=== PATIENT | male | born 1970 | race Caucasian/White ===

== ENCOUNTER 2018-02-10 11:25 | Emergency (ER) | payer SELFPAY ==
[~2018-02-10] VITALS: Ht 182.9 cm; Wt 147.4 kg
--- OUTSIDE RECORDS SUMMARY | ~2018-02-10 | XMS | Clinical Summary ---
Demographics + + + | Address | [address] | | | [place] [address] | + + + | Home Phone | | + + + | Preferred Language | Unknown | + + + | Marital Status | | + + + | Amish Affiliation | Unknown | + + + | Race | Unknown | + + + | Ethnic Group | Unknown | + + + Author + + + | Author | [facility] | | | and [place] | + + + | Organization | [facility] | | | and [...] Team Providers + +------+ + | Care Fleet Mechanic Name | Role | Phone | + [...] | MELINDA CMS WC | [place] | [id number] | Indemn | +- | | | | CK CMS | | ity | 4400 | | | | WC | | | | | + +--------+ +--------+ +---------+ | BCBS | BCBS | [id number] | PPO | | | | | [...] | 1971 | +[address] | [place] [address] | | | tano | | | [address] | | + +--------+ +--------+ + + | [id number] | Worker | Self | [birth year] | Work: | [address] | | | s Comp | | 1970 | [address] | [place] [address] | | | | | | [address] Home: | | | | | | | | | | | | | | +[address]- | | | | | | | [address] | | + +--------+ +--------+ + +"
--- OUTSIDE RECORDS SUMMARY | ~2018-02-10 | XMS | Clinical Summary ---
Demographics + + + | Address | [address] | | | [place] [address] | + + + | Home Phone | | + + + | Preferred Language | Unknown | + + + | Marital Status | | + + + | Yarsanism Affiliation | Unknown | + + + | Race | Unknown | + + + | Ethnic Group | Unknown | + + + Author + + + | Author | [facility] | | | and [place] | + + + | Organization | [facility] | | | and [...] Team Providers + +------+ + | Care Pipe Processor Name | Role | Phone | + [...] | MELINDA CMS WC | SED[place] | [id number] | Indemn | +- | | | | CK CMS | | ity | [address]00 | | | | WC | | | | | + +--------+ +--------+ +---------+ | BCBS | BCBS | [id number] | PPO | | | | | [...] | 1971 | +[address] | [place] [address] | | | tano | | | [address] | | + +--------+ +--------+ + + | [id number] | Worker | Self | [birth year] | Work: | [address] | | | s Comp | | 1970 | +[address] | [place] [address] | | | | | | [address] Home: | | | | | | | | | | | | | | +[address]- | | | | | | | [address] | | + +--------+ +--------+ + +"
[~2018-02-10 11:25] MED LIST: ALEVE220 M1 PO; BACTRIM DS TAB1 EACH PO; CITALOPRAM HBR20 MG PO; CYCLOBENZAPRINE10 MG PO; CYMBALTA30 MG PO; DULOXETINE HCL20 MG PO; GLUCOSAMINE-CH1 EA21 PO; IBUPROFEN800 MG PO; LISINOPRIL-HCT1 EAC2 PO; MINIPRESS1 MG PO; MULTIVITAMINS1 EAC7; NORCO 5-325 TA1 EACH PO; OMEPRAZOLE20 MG PO; OXYCODONE HCL10 MG PO; PERCOCET 10-321 EACH PO; PERCOCET 5-3251 EACH PO; PRAZOSIN HCL1 MG PO; TESSALON PERLE100 MG PO; ZINC30 MG PO; ZITHROMAX250 MG PO
--- OUTSIDE RECORDS SUMMARY | 2018-02-10 11:30 | XMS ---
PreManage Notification: HERMILA ZARATE Security Data Security Consultant Events No recent Security Events currently on file CRITERIA MET - Group Notification CARE PROVIDERS Tony Harmon Primary Care Current PHONE: Unknown DR SANJEEV WEAVER Primary Care 12/21/2015-Current PHONE: [phone] Ritesh has no Care Guidelines for this patient. Miranda VISIT COUNT (12 MO.) Chad Astudillo TOTAL 1 NOTE: Visits indicate total known visits. ED/UCC VISIT TRACKING (12 MO.) 02/10/2018 11:[address] [facility] [place] TYPE: Emergency COMPLAINT: - L HAND LACERATION INPATIENT VISIT TRACKING (12 MO.) No inpatient visits to display in this time frame [id number]
[2018-02-10] MEDS ORDERED: ASPIR 8181 MG PO (12:18)
== END 2018-02-10 11:47 | disposition home or self-care (01) ==
LOC: ED 11:25
DX: S61.412A Laceration without foreign body of left hand, initial encounter (principal); W22.8XXA Striking against or struck by other objects, initial encounter

== ENCOUNTER 2018-02-10 12:08 | Emergency (ER) | payer OTHER ==
[~2018-02-10] VITALS: Ht 182.9 cm; Wt 147.4 kg
--- OUTSIDE RECORDS SUMMARY | ~2018-02-10 | XMS | Clinical Summary ---
Demographics + + + | Address | [address] | | | [place] [address] | + + + | Home Phone | | + + + | Preferred Language | Unknown | + + + | Marital Status | | + + + | Mormonism Affiliation | Unknown | + + + | Race | Unknown | + + + | Ethnic Group | Unknown | + + + Author + + + | Author | [facility] | | | and [place] | + + + | Organization | [facility] | | | and [place] | + + + | Address | Unknown | + + + | Phone | Unavailable | + + + Support + + +---------+ + | Name | Relationship | Address | Phone | + + +---------+ + | Neetu Jang | ECON | Unknown | | + + +---------+ + Care Team Providers + +------+ + | Care Cyber Workforce Developer And Manager Name | Role | Phone | + +------+ + | Moises Zambrano MD | PP | | + +------+ + Allergies No Known Allergies Current Medications + + +-------+---------+------+------+-------+ | Prescription | Sig. | Disp. | Refills | Star | End | Statu | | | | | | t | Date | s | | | | | | Date | | | + + +-------+---------+------+------+-------+ | | Take 1 tablet by | | | | | Activ | | lisinopril-hydrochlo | mouth Daily. | | | | | e | | rothiazide | | | | | | | | (PRINZIDE,ZESTORETIC | | | | | | | | ) 10-12.5 MG per | | | | | | | | tablet | | | | | | | + + +-------+---------+------+------+-------+ | omeprazole | Take 10 mg by mouth | | | | | Activ | | (PRILOSEC) 10 mg | every morning | | | | | e | | capsule | (before breakfast). | | | | | | + + +-------+---------+------+------+-------+ | DULoxetine | Take 20 mg by mouth | | | | | Activ | | (CYMBALTA) [address] | Daily. | | | | | e | | capsule | | | | | | | + + +-------+---------+------+------+-------+ | Multiple | Take 1 tablet by | | | | | Activ | | Vitamins-Minerals | mouth Daily. | | | | | e | | (MULTIVITAMIN ADULT | | | | | | | | PO) | | | | | | | + + +-------+---------+------+------+-------+ | cyanocobalamin | Take 50 mcg by mouth | | | | | Activ | | (VITAMIN B-12) 100 | Daily. | | | | | e | | MCG tablet | | | | | | | + + +-------+---------+------+------+-------+ | naproxen | Take 250 mg by mouth | | | | | Activ | | (NAPROSYN) 250 mg | 2 times daily (with | | | | | e | | tablet | breakfast & | | | | | | | | dinner). | | | | | | + + +-------+---------+------+------+-------+ Active Problems + + + | Problem | Noted Date | + + + | Bilateral hand numbness | 05/12/2016 | + + + Social History + +-------+ +--------+ + | Tobacco Use | Types | Packs/Day | Years | Date | | | | | Used | | + +-------+ +--------+ + | Former Smoker | | | | Quit: 10/05/2015 | + +-------+ +--------+ + + +---+---+---+ | Smokeless Tobacco: | | | | | Current User | | | | + +---+---+---+ + + + | Sex Assigned at | Date Recorded | | | | + + + | Not on file | | + + + Last Filed Vital Signs + + + + | Vital Sign | Reading | Time Taken | + + + + | Blood Pressure | 144/74 | 04/22/20161510 PST | + + + + | Pulse | 66 | 04/22/20161510 PST | + + + + | Temperature | - | - | + + + + | Respiratory Rate | - | - | + + + + | Oxygen Saturation | - | - | + + + + | Inhaled Oxygen | - | - | | Concentration | | | + + + + | Weight | 138.3 kg (305 lb) | 04/22/20161510 PST | + + + + | Height | 182.9 cm (6') | 04/22/20161510 PST | + + + + | Body Mass Index | 41.37 | 04/22/20161510 PST | + + + + Plan of Treatment + + + + + | Health Maintenance | Due Date | Last Done | Comments | + + + + + | Vaccine: | | | | | Dtap/Tdap/Td (1 - | 0 | | | | Tdap) | | | | + + + + + | Vaccine: Influenza | | | | | (#1) | 8 | | | + + + + + Results Not on filefrom Last 3 Months Insurance + +--------+ +--------+ +---------+ | Payer | Benefi | Subscriber | Type | Phone | Address | | | t Plan | ID | | | | | | / | | | | | | | Group | | | | | + +--------+ +--------+ +---------+ | MELINDA CMS WC | [place] | [id number] | Indemn | +- | | | | CK CMS | | ity | 4400 | | | | WC | | | | | + +--------+ +--------+ +---------+ | BCBS | BCBS | [id number] | PPO | | | | | OUT OF | 2 | | | | | | STATE | | | | | | | PPO | | | | | + +--------+ +--------+ +---------+ + +--------+ +--------+ + + | Guarantor Name | Accoun | Relation to | Date | Phone | Billing Address | | | t Type | Patient | of | | | | | | | | | | + +--------+ +--------+ + + | HERMILA ZARATE | Person | Self [birth year] | Home: | [address] | | | al/Fam | | 1971 | [address] | [place] [address] | | | tano | | | [phone] | | + +--------+ +--------+ + + | [id number] | Worker | Self | [birth year] | Work: | [address] | | | s Comp | | 1970 | [address] | [place] [address] | | | | | | [address] Home: | | | | | | | | | | | | | | +[address]- | | | | | | | [address] | | + +--------+ +--------+ + +"
--- OUTSIDE RECORDS SUMMARY | ~2018-02-10 | XMS | Clinical Summary ---
Demographics + + + | Address | [address] | | | [place] [address] | + + + | Home Phone | | + + + | Preferred Language | Unknown | + + + | Marital Status | | + + + | Anglican Affiliation | Unknown | + + + | Race | Unknown | + + + | Ethnic Group | Unknown | + + + Author + + + | Author | [facility] | | | and [place] | + + + | Organization | [facility] | | | [...] Team Providers + +------+ + | Care Food Photographer Name | Role | Phone | + [...] | MELINDA CMS WC | [place] | [id number] | Indemn | +- | | | | CK CMS | | ity | 4400 | | | | WC | | | | | + +--------+ +--------+ +---------+ | BCBS | BCBS | [id number] | PPO | | | | | [...] | 1971 | [address] | [place] [address] | | | tano | | | [address] | | + +--------+ +--------+ + + | [id number] | Worker | Self | [birth year] | Work: | [address] | | | s Comp | | 1970 | [address] | [place] [address] | | | | | | [address] Home: | | | | | | | | | | | | | | +[address]- | | | | | | | [address] | | + +--------+ +--------+ + +"
--- OUTSIDE RECORDS SUMMARY | 2018-02-10 12:14 | XMS ---
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 Miranda VISIT COUNT (12 MO.) 2 [facility] TOTAL 2 NOTE: Visits indicate total known visits. ED/UCC VISIT TRACKING (12 MO.) 02/10/2018 12:10 [facility] [place] TYPE[facility] Emergency COMPLAINT: - L THUMB LAC 02/10/2018 11:25 [facility] [place] TYPE: Emergency COMPLAINT: - L HAND LACERATION INPATIENT VISIT TRACKING (12 MO.) No inpatient visits to display in this time frame [id number]
[2018-02-10] MEDS ORDERED: ASPIR 8181 MG PO (12:18)
== END 2018-02-10 12:45 | disposition home or self-care (01) ==
LOC: ED 12:08
PROC: 0HQGXZZ Repair Left Hand Skin, External Approach (ICD-10-PCS; principal; 2018-02-10)
DX: S61.412A Laceration without foreign body of left hand, initial encounter (principal); W26.8XXA Contact with other sharp object(s), not elsewhere classified, initial encounter; K21.9 Gastro-esophageal reflux disease without esophagitis; I10 Essential (primary) hypertension; Z87.891 Personal history of nicotine dependence; Z79.899 Other long term (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; Z79.82 Long term (current) use of aspirin
CPT/HCPCS: 12001; 99282

== ENCOUNTER 2018-04-19 18:25 | Emergency (ER) | payer OTHER ==
[~2018-04-19] VITALS: Ht 182.9 cm; Wt 147.4 kg
[~2018-04-19 18:25] MED LIST changes: +ASPIR 8181 MG PO
--- OUTSIDE RECORDS SUMMARY | 2018-04-19 18:30 | XMS ---
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 Care History Medical/Surgical 02/11/2018 [facility] - Patient is currently established with [facility]. If patient is seen in the ED during business hours. Please contact CHWs at [facility]. Care Recommendation: This patient has had 5 or more Emergency Department visits in the last 12 months.\T\nbsp; Patient requires education on the scope and purpose of the ED as an acute care provider not a Primary Care Provider and should not be utilized for chronic conditions.\T\nbsp; These are guidelines and the provider should exercise clinical judgment when providing care. E.D. VISIT COUNT (12 MO.) 3 [facility]. TOTAL 3 NOTE: Visits indicate total known visits. ED/UCC VISIT TRACKING (12 MO.) 04/19/2018 18:25 [facility] [place] TYPE: Emergency COMPLAINT: - SOB 02/10/2018 12:10 [facility] [place] TYPE: Emergency COMPLAINT: - L THUMB LAC DIAGNOSES: - [facility] (current) use of aspirin - Essential (primary) hypertension - Personal history of nicotine dependence - Laceration without foreign body of left hand, initial encounter - Other buttermaker continuous churn (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 - Gastro-esophageal reflux disease without esophagitis - Contact with other sharp object(s), not elsewhere classified, initial encounter 02/10/2018 11:25 [facility] [place] TYPE: Emergency COMPLAINT: - L HAND LACERATION DIAGNOSES: - Striking against or struck by other objects, initial encounter - Laceration without foreign body of left hand, initial encounter INPATIENT VISIT TRACKING (12 MO.) No inpatient visits to display in this time frame [email or web address]
[2018-04-19] MEDS ORDERED: ACETAMINOPHEN-1 EAC1 PO (19:54)
[2018-04-19] MEDS ORDERED: ZITHROMAX250 MG PO (19:54)
--- NOTE | 2018-04-20 06:22 | EKG ---
[facility] [address] [place] [address] Signed Normal sinus rhythm with sinus arrhythmia Normal ECG When compared with ECG of 12-FEB-2016 16:19, No significant change was found Confirmed by ARELIS CONWAY MD ([id number]) on 04/20/2018 6:22:19 AM Electronically Signed By: ARELIS CONWAY MD 04/20/18621 PATIENT NAME: HERMILA ZARATE Electrocardiogram DATE OF : 70 PHYSICIAN: ARELIS CONWAY MD REPORT #: [id number] REPORT IS CONFIDENTIAL AND NOT TO BE RELEASED WITHOUT AUTHORIZATION
== END 2018-04-19 20:05 | disposition home or self-care (01) ==
LOC: ED 18:25
DX: S29.011A Strain of muscle and tendon of front wall of thorax, initial encounter (principal); J20.9 Acute bronchitis, unspecified; K21.9 Gastro-esophageal reflux disease without esophagitis; I10 Essential (primary) hypertension; Z87.891 Personal history of nicotine dependence; Z89.011 Acquired absence of right thumb; Z79.899 Other long term (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; Z79.84 Long term (current) use of oral hypoglycemic drugs; X58.XXXA Exposure to other specified factors, initial encounter
CPT/HCPCS: 71045; 80053; 84484; 85025; 85379; 93005; 93010; 99285-25

== ENCOUNTER 2018-05-03 21:45 | Emergency (ER) | payer OTHER ==
[~2018-05-03] VITALS: Ht 182.9 cm; Wt 147.4 kg
[~2018-05-03 21:45] MED LIST changes: +ACETAMINOPHEN-1 EAC1 PO
--- OUTSIDE RECORDS SUMMARY | 2018-05-03 21:48 | XMS ---
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 Care History Medical/Surgical 02/11/2018 [facility] - Patient is currently established with [facility]. If patient is seen in the ED during business hours. Please contact CHWs at [facility]. Care Recommendation: This patient has had 5 [...] providing care. E.D. VISIT COUNT (12 MO.) [address] [facility] TOTAL 4 NOTE: Visits indicate total known visits. ED/UCC VISIT TRACKING (12 MO.) 05/03/2018 21:46 [facility] [place] TYPE: Emergency COMPLAINT: - CHEST/BACK/RIB PAIN,CONGESTION 04/19/2018 18:25 [facility] [place] TYPE: Emergency COMPLAINT: - SOB DIAGNOSES: - Personal history of nicotine dependence - Strain of muscle and tendon of front wall of thorax, initial encounter - prison (current) use of oral hypoglycemic drugs - Other custodial (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 - Gastro-esophageal reflux disease without esophagitis - Exposure to other specified factors, initial encounter - Essential (primary) hypertension - Acquired absence of right thumb - Acute bronchitis, unspecified - Cough 02/10/2018 12:10 [facility] [place] TYPE: Emergency COMPLAINT: - L THUMB LAC DIAGNOSES: - superintendent terminal (current) use of aspirin - Essential (primary) hypertension - Personal history of nicotine dependence - Laceration without foreign body of left hand, initial encounter - Other long term care social worker (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 - Gastro-esophageal reflux disease [...] visits to display in this time frame [email or web address]
== END 2018-05-03 22:33 | disposition left against medical advice (07) ==
LOC: ED 21:45
DX: Z53.21 Procedure and treatment not carried out due to patient leaving prior to being seen by health care provider (principal)

== ENCOUNTER 2018-05-11 11:55 | Emergency (ER) | payer OTHER ==
[~2018-05-11] VITALS: Ht 182.9 cm; Wt 147.4 kg
--- OUTSIDE RECORDS SUMMARY | 2018-05-11 11:58 | XMS ---
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 Care History Medical/Surgical 02/11/2018 [facility] - Patient is currently established with [facility]. If patient is seen in the ED during business hours. Please contact CHWs at [facility]. Care Recommendation: This patient has had [...] providing care. E.D. VISIT COUNT (12 MO.) 5 [facility]. TOTAL 5 NOTE: Visits indicate total known visits. 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 hypoglycemic drugs - Other half-way (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 - Gastro-esophageal reflux disease without esophagitis - Exposure to other specified factors, initial encounter - Essential (primary) hypertension - Acquired absence of right thumb - Acute bronchitis, unspecified - Cough 02/10/2018 12:10 [facility] [place] TYPE: Emergency COMPLAINT: - L THUMB LAC DIAGNOSES: - custodial (current) use of aspirin - Essential (primary) hypertension - Personal history of nicotine dependence - Laceration without foreign body of left hand, initial encounter - Other half-way (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 - Gastro-esophageal reflux disease without esophagitis - Contact with other sharp object(s), not elsewhere classified, initial encounter 02/10/2018 11:[address] [facility] [place] TYPE: Emergency COMPLAINT: - L HAND LACERATION DIAGNOSES: - Striking against or struck by other objects, initial encounter - Laceration without foreign body of left hand, initial encounter INPATIENT VISIT TRACKING (12 MO.) No inpatient visits to display in this time frame [email or web address]
[2018-05-11] MEDS ORDERED: METHYLPREDNISOLO4 M1 PO (13:13)
[2018-05-11] MEDS ORDERED: BACLOFEN10 MG PO (13:13)
[2018-05-11] MEDS ORDERED: NORCO 5-325 TA1 EACH PO (13:13)
--- NOTE | 2018-05-11 13:40 | EKG ---
[facility] [address] [facility] [place] [address] Signed Normal sinus rhythm with sinus arrhythmia Normal ECG When compared with ECG of 19-APR-2018 18:32, No significant change was found Confirmed by GODFREY GUNTER DO ([id number]) on 05/11/2018 1:40:23 PM Electronically Signed By: GODFREY GUNTER DO 05/11/18 1340 PATIENT NAME: HERMILA ZARATE Electrocardiogram DATE OF : 70 PHYSICIAN: GODFREY GUNTER DO REPORT #: [id number] REPORT IS CONFIDENTIAL AND NOT TO BE RELEASED WITHOUT AUTHORIZATION
== END 2018-05-11 13:35 | disposition home or self-care (01) ==
LOC: ED 11:55
DX: R09.1 Pleurisy (principal); K21.9 Gastro-esophageal reflux disease without esophagitis; I10 Essential (primary) hypertension; Z87.891 Personal history of nicotine dependence; Z79.899 Other long term (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; Z51.81 Encounter for therapeutic drug level monitoring
CPT/HCPCS: 71045; 80053; 84484; 85025; 85379; 85610; 85730; 93005; 93010; 96374; 96375; 99285-25; J1885; J2060; J2405

== ENCOUNTER 2018-08-16 16:34 | Emergency (ER) | payer OTHER ==
[~2018-08-16] VITALS: Ht 182.9 cm; Wt 147.4 kg
[~2018-08-16 16:34] MED LIST changes: +BACLOFEN10 MG PO; +METHYLPREDNISOLO4 M1 PO
--- OUTSIDE RECORDS SUMMARY | 2018-08-16 16:36 | XMS ---
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 Care History Medical/Surgical 02/11/2018 [facility] - Patient is currently established with [facility]. If patient is seen in the ED during business hours. Please contact CHWs at [facility]. Care Recommendation: This patient has [...] providing care. E.D. VISIT COUNT (12 MO.) 6 [facility]. TOTAL 6 NOTE: Visits indicate total known visits. ED/UCC VISIT TRACKING (12 MO.) 08/16/2018 16:35 [facility] [place] TYPE[place] Emergency COMPLAINT: - LOSS OF CONCIOUSNESS 05/11/2018 11:56 [facility] [place] TYPE: Emergency COMPLAINT: - DIFFICULTY BREATHING/BACK PAIN DIAGNOSES: - Other termite exterminator (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 - Encounter for therapeutic drug level monitoring - Personal history of nicotine dependence - Essential (primary) hypertension - Precordial pain - Pleurisy - Gastro-esophageal reflux disease without esophagitis 05/03/2018 21:46 [facility] [place] TYPE: Emergency COMPLAINT: - CHEST/BACK/RIB PAIN,CONGESTION DIAGNOSES: - Procedure and treatment not carried out due to patient leaving prior to being seen by health care provider 04/19/2018 18:25 [facility] [place] TYPE: Emergency COMPLAINT: - SOB DIAGNOSES: - Personal history of nicotine dependence - Strain of muscle and tendon of front wall of thorax, initial encounter - [facility] (current) use of oral hypoglycemic drugs - Other prison (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 - Gastro-esophageal reflux disease without esophagitis - Exposure to other specified factors, initial encounter - Essential (primary) hypertension - Acquired absence of right thumb - Acute bronchitis, unspecified - Cough 02/10/2018 12:10 [facility] [place] TYPE: Emergency COMPLAINT: - L THUMB LAC DIAGNOSES: - termite exterminator (current) use of aspirin - Essential (primary) hypertension - Personal history of nicotine dependence - Laceration without foreign body of left hand, initial encounter - Other termite exterminator (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 - Gastro-esophageal reflux disease [...] visits to display in this time frame [id number]
[2018-08-16] MEDS ORDERED: VENTOLIN HFA18 GM INH (18:46)
--- NOTE | 2018-08-17 16:02 | EKG ---
[facility] [address] [facility] [place] [address] Signed Normal sinus rhythm Normal ECG When compared with ECG of 11-MAY-2018 12:11, No significant change was found Confirmed by ARELIS CONWAY MD ([id number]) on 08/17/2018 4:01:52 PM Electronically Signed By: ARELIS CONWAY MD 08/17/18 1602 PATIENT NAME: HERMILA ZARATE Electrocardiogram DATE OF : 70 PHYSICIAN: ARELIS CONWAY MD REPORT #: [id number] REPORT IS CONFIDENTIAL AND NOT TO BE RELEASED WITHOUT AUTHORIZATION
== END 2018-08-16 19:10 | disposition home or self-care (01) ==
LOC: ED 16:34
DX: R55 Syncope and collapse (principal); I10 Essential (primary) hypertension; K21.9 Gastro-esophageal reflux disease without esophagitis; Z79.82 Long term (current) use of aspirin; Z79.899 Other long term (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
CPT/HCPCS: 0296T; 0297T; 0298T; 80053; 84484; 85025; 93005; 93010; 99284-25

== ENCOUNTER 2019-02-28 16:40 | Emergency (ER) | payer OTHER ==
[~2019-02-28] VITALS: Ht 182.9 cm; Wt 133.8 kg
[~2019-02-28 16:40] MED LIST changes: +VENTOLIN HFA18 GM INH
--- OUTSIDE RECORDS SUMMARY | 2019-02-28 16:42 | XMS ---
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 1 event(s) in the past 18 months Most recent security events: Elopement at [facility] 05/03/2018 21:46 - Other Details: PATIENT LWOBS- NOT TRIAGED CRITERIA MET - Group Notification - [facility] - Has Care Guidelines CARE PROVIDERS SANJEEV WEAVER Internal Medicine 02/11/2018-Current PHONE: Unknown Tony Harmon Primary Care Nahed OLIVEIRA PHONE: Unknown DR SANJEEV WEAVER Primary Care 12/21/2015-Current PHONE: [phone] Guidelines Source: [facility] Guidelines Date: 08/24/2018 Care Coordination: Mental health services are being provided by [facility].\T\nbsp; Please contact [facility] with mental health concerns.\T\nbsp; Luisa/Darian Jones: \T\nbsp; Ulises: [phone]. Care History Medical/Surgical 02/11/2018 [facility] - Patient is currently established with [facility]. If patient is seen in the ED during business hours. Please contact CHWs at [facility]. Care Recommendation: This patient has had [...] care. E.D. VISIT COUNT (12 MO.) 5 [facility]. TOTAL 5 NOTE: Visits indicate total known visits. ED/UCC VISIT TRACKING (12 MO.) 02/28/2019 16:40 [facility] [place] TYPE: Emergency COMPLAINT: - SHOULDER PAIN, NON INJ 08/16/2018 16:35 [facility] [place] TYPE: Emergency COMPLAINT: - LOSS OF CONCIOUSNESS DIAGNOSES: - Gastro-esophageal reflux disease without esophagitis - skilled nursing (current) use of aspirin - Essential (primary) hypertension - Syncope and collapse - 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 05/11/2018 11:56 [facility] [place] TYPE: Emergency COMPLAINT: - DIFFICULTY BREATHING/BACK PAIN DIAGNOSES: - Other retirement (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 - Encounter for therapeutic drug level monitoring - Personal history of nicotine dependence - Essential (primary) hypertension - Precordial pain - Pleurisy - Gastro-esophageal reflux disease without esophagitis 05/03/2018 21:46 [facility] [place] TYPE: Emergency COMPLAINT: - CHEST/BACK/RIB PAIN,CONGESTION DIAGNOSES: - Proc/trtmt not crd out d/t pt lv bef seen by [facility] care prov 04/19/2018 18:25 [facility] [place] TYPE: Emergency COMPLAINT: - SOB DIAGNOSES: - Personal history of nicotine dependence - Strain of muscle and tendon of front wall of thorax, init - emt intermediate (current) use of oral hypoglycemic drugs - 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
[2019-02-28] MEDS ORDERED: VENTOLIN HFA18 GM (18:09)
[2019-02-28] MEDS ORDERED: AMBIEN5 MG (18:09)
[2019-02-28] MEDS ORDERED: VALIUM10 MG PO (18:37)
== END 2019-02-28 19:12 | disposition home or self-care (01) ==
LOC: ED 16:40
DX: T14.8XXA Other injury of unspecified body region, initial encounter (principal); M43.6 Torticollis; I10 Essential (primary) hypertension; K21.9 Gastro-esophageal reflux disease without esophagitis; Z87.891 Personal history of nicotine dependence; Z79.899 Other long term (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; X58.XXXA Exposure to other specified factors, initial encounter
CPT/HCPCS: 96372; 99283; J1885; J3360

== ENCOUNTER 2019-03-02 09:09 | Emergency (ER) | payer OTHER ==
[~2019-03-02] VITALS: Ht 182.9 cm; Wt 133.8 kg
[~2019-03-02 09:09] MED LIST changes: +AMBIEN5 MG; +VALIUM10 MG PO; +VENTOLIN HFA18 GM
--- OUTSIDE RECORDS SUMMARY | 2019-03-02 09:12 | XMS ---
PreManage Notification: HERMILA ZARATE Security Kraft Digester Operator Events 1 event(s) in the past 18 months Most recent security events: Elopement at [facility] 05/03/2018 21:46 - Other Details: PATIENT LWOBS- NOT TRIAGED CRITERIA MET - Group Notification - [facility] - Has Care Guidelines - PDMP - [facility] - 2 Visits in 30 Days CARE PROVIDERS SANJEEV ZAMBRANO Internal Medicine 02/11/2018-Current PHONE: Unknown Tony Harmon Primary Care Nahed OLIVEIRA PHONE: Unknown DR SANJEEV ZAMBRANO Primary Care 12/21/2015-Current PHONE: [phone] Guidelines Source: [facility] Guidelines Date: 08/24/2018 Care Coordination: Mental health services are being provided by [facility].\T\nbsp; Please contact [facility] with mental health concerns.\T\nbsp; Luisa/Darian Jones: \T\nbsp; Ulises: [phone]. Care History Medical/Surgical 03/01/2019 [facility] Patient has follow up appt on 05/30/[address] Zambrano.\T\nbsp; Spoke with viviana\T\eacmayra;; she stated that pt was in ED.\T\nbsp; I advised her that if pt needs to be seen again or would like to have follow up sooner than 2019 to contact PCP. 02/11/2018 [facility] - Patient is currently established with [facility]. If patient is seen in the ED during business hours. Please contact CHWs at [facility]. Care Recommendation: This patient has had [...] care. E.D. VISIT COUNT (12 MO.) 6 [facility]. TOTAL 6 NOTE: Visits indicate total known visits. ED/UCC VISIT TRACKING (12 MO.) 03/02/2019 09:10 [facility] [place] TYPE: Emergency COMPLAINT: - SHOULDER/ELBOW PAIN 02/28/2019 16:40 [facility] [place] TYPE: Emergency COMPLAINT: - SHOULDER PAIN, NON INJ 08/16/2018 16:35 [facility] [place] TYPE: Emergency COMPLAINT: - LOSS OF CONCIOUSNESS DIAGNOSES: - Gastro-esophageal reflux disease without esophagitis - exterminator (current) use of aspirin - Essential (primary) hypertension - Syncope and collapse - Other vermin exterminator (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 05/11/2018 11:56 [facility] [place] TYPE: Emergency COMPLAINT: - DIFFICULTY BREATHING/BACK PAIN DIAGNOSES: - Other vermin exterminator (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 - Encounter for therapeutic drug level monitoring - Personal history of nicotine dependence - Essential (primary) hypertension - Precordial pain - Pleurisy - Gastro-esophageal reflux disease without esophagitis 05/03/2018 21:46 [facility] [place] TYPE: Emergency COMPLAINT: - CHEST/BACK/RIB PAIN,CONGESTION DIAGNOSES: - Proc/trtmt not crd out d/t pt lv bef seen by [facility] care prov 04/19/2018 18:25 [facility] [place] TYPE: Emergency COMPLAINT: - SOB DIAGNOSES: - Personal history of nicotine dependence - Strain of muscle and tendon of front wall of thorax, init - exterminator (current) use of oral hypoglycemic drugs - Other penitentiary (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 - Gastro-esophageal reflux disease without esophagitis - Exposure to other specified factors, initial encounter - Essential (primary) hypertension - Acquired absence of right thumb - Acute bronchitis, unspecified - Cough INPATIENT VISIT TRACKING (12 MO.) No inpatient visits to display in this time frame [email or web address]
[2019-03-02] MEDS ORDERED: COMBIVENT RESPIM4 GM INH (09:22)
[2019-03-02] MEDS ORDERED: NORCO 7.5-3251 EACH PO (11:40)
== END 2019-03-02 11:48 | disposition home or self-care (01) ==
LOC: ED 09:09
DX: M75.32 Calcific tendinitis of left shoulder (principal); I10 Essential (primary) hypertension; K21.9 Gastro-esophageal reflux disease without esophagitis; Z87.891 Personal history of nicotine dependence; Z79.899 Other long term (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
CPT/HCPCS: 73030; 96372; 99283-25; A9270; J1885

== ENCOUNTER 2019-04-06 18:47 | Emergency (ER) | payer OTHER ==
[~2019-04-06] VITALS: Ht 182.9 cm; Wt 133.8 kg
[~2019-04-06 18:47] MED LIST changes: +COMBIVENT RESPIM4 GM INH; +NORCO 7.5-3251 EACH PO
--- OUTSIDE RECORDS SUMMARY | 2019-04-06 18:50 | XMS ---
PreManage Notification: HERMILA ZARATE Security Remittance Clerk Events 1 event(s) in the past 18 months Most recent security events: Elopement at [facility] 05/03/2018 21:46 - Other Details: PATIENT LWOBS- NOT TRIAGED CRITERIA MET - Group Notification - [facility] - Has Care Guidelines - PDMP CARE PROVIDERS SANJEEV ZAMBRANO Internal Medicine 02/11/2018-Current PHONE: Unknown Tony Harmon Primary Care Nahed OLIVEIRA PHONE: Unknown DR SANJEEV ZAMBRANO Primary Care 12/21/2015-Current PHONE: [phone] [facility] Guidelines Date: 08/24/2018 Care Coordination: Mental health services are being provided by [facility].\T\nbsp; Please contact [facility] with mental health concerns.\T\nbsp; Luisa/Darian Jones: \T\nbsp; Ulises: [phone]. Care History Medical/Surgical 03/01/2019 [facility] Patient has follow up appt on 05/30/[address] Zambrano. Spoke with viviana; she stated that pt was in ED. I advised her that if pt needs to be seen again or would like to have follow up sooner than 05/30/2019 to contact PCP. 02/11/2018 [facility] - Patient is currently established with [facility]. If patient is seen in the ED during business hours. Please contact CHWs at [facility]. Care Recommendation: This patient has had [...] providing care. E.D. VISIT COUNT (12 MO.) 7 [facility]. TOTAL 7 NOTE: Visits indicate total known visits. ED/UCC VISIT TRACKING (12 MO.) 04/06/2019 18:48 [facility] [place] TYPE: Emergency COMPLAINT: - DIZZINESS/HEADACHE 03/02/2019 09:10 [facility] [place] TYPE: Emergency COMPLAINT: - SHOULDER/ELBOW PAIN DIAGNOSES: - Pain in left shoulder - Calcific tendinitis of left shoulder - Other terminal make up operator (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 - Personal history of nicotine dependence - Essential (primary) hypertension - Gastro-esophageal reflux disease without esophagitis 02/28/2019 16:40 [facility] [place] TYPE: Emergency COMPLAINT: - SHOULDER PAIN, NON INJ DIAGNOSES: - Other care home (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 - Other injury of unspecified body region, initial encounter - Essential (primary) hypertension - Personal history of nicotine dependence - Gastro-esophageal reflux disease without esophagitis - Torticollis - Pain in left shoulder - Exposure to other specified factors, initial encounter 08/16/2018 16:35 [facility] [place] TYPE: Emergency COMPLAINT: - LOSS OF CONCIOUSNESS DIAGNOSES: - Gastro-esophageal reflux disease without esophagitis - [facility] (current) use of aspirin - Essential (primary) hypertension - Syncope and collapse - Other terminal make up operator (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 05/11/2018 11:56 [facility] [place] TYPE: Emergency COMPLAINT: - DIFFICULTY BREATHING/BACK PAIN DIAGNOSES: - Other care home (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 - Encounter for therapeutic drug level monitoring - Personal history of nicotine dependence - Essential (primary) hypertension - Precordial pain - Pleurisy - Gastro-esophageal reflux disease without esophagitis 05/03/2018 21:46 [facility] [place] TYPE: Emergency COMPLAINT: - CHEST/BACK/RIB PAIN,CONGESTION DIAGNOSES: - Proc/trtmt not crd out d/t pt lv bef seen by [facility] care prov 04/19/2018 18:[address] [facility] [place] TYPE: Emergency COMPLAINT: - SOB DIAGNOSES: - Personal history of nicotine dependence - Strain of muscle and tendon of front wall of thorax, init - rn long term care (current) use of oral hypoglycemic drugs - Other terminal make up operator (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 - Gastro-esophageal reflux disease without esophagitis - Exposure to other specified factors, initial encounter - Essential (primary) hypertension - Acquired absence of right thumb - Acute bronchitis, unspecified - Cough INPATIENT VISIT TRACKING (12 MO.) No inpatient visits to display in this time frame [id number]
[2019-04-06] MEDS ORDERED: LISINOPRIL20 MG PO (19:11)
[2019-04-06] MEDS ORDERED: L-METHYLFOLATE15 MG PO (19:13)
[2019-04-06] MEDS ORDERED: NIACIN ER500 MG PO (19:13)
[2019-04-06] MEDS ORDERED: TRAZODONE HCL50 MG PO (19:14)
[2019-04-06] MEDS ORDERED: VITAMIN D250 MCG PO (19:15)
[2019-04-06] MEDS ORDERED: ABILIFY2 MG PO (19:15)
== END 2019-04-06 21:06 | disposition home or self-care (01) ==
LOC: ED 18:47
DX: G43.909 Migraine, unspecified, not intractable, without status migrainosus (principal); K21.9 Gastro-esophageal reflux disease without esophagitis; I10 Essential (primary) hypertension; Z87.891 Personal history of nicotine dependence; Z79.899 Other long term (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
CPT/HCPCS: 70450; 96374; 96375; 99284-25; J1200; J1885; J2765

== ENCOUNTER 2019-04-22 20:48 | Emergency (ER) | payer OTHER ==
[~2019-04-22] VITALS: Ht 182.9 cm; Wt 127.0 kg
[~2019-04-22 20:48] MED LIST changes: +ABILIFY2 MG PO; +L-METHYLFOLATE15 MG PO; +LISINOPRIL20 MG PO; +NIACIN ER500 MG PO; +TRAZODONE HCL50 MG PO; +VITAMIN D250 MCG PO
--- OUTSIDE RECORDS SUMMARY | 2019-04-22 20:52 | XMS ---
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 Events 1 event(s) in the past 18 months Most recent security events: Elopement at [facility] 05/03/2018 21:46 - Other Details: PATIENT LWOBS- NOT TRIAGED CRITERIA MET - Group Notification - [facility] - Has Care Guidelines - PDMP - [facility] - 2 Visits in 30 Days CARE PROVIDERS SANJEEV ZAMBRANO Internal Medicine 02/11/2018-Current PHONE: Unknown Tony Harmon Primary Care Nahed OLIVEIRA PHONE: Unknown DR SANJEEV ZAMBRANO Primary Care 12/21/2015-Current PHONE: [phone] Guidelines Source: [facility] Guidelines Date: 08/24/2018 Care Coordination: Mental health services are being provided by [facility].\T\nbsp; Please contact [facility] with mental health concerns.\T\nbsp; Luisa/Darian Jones: \T\nbsp; Ulises: [phone]. Care History Medical/Surgical 04/07/2019 [facility] Patient seen in ED after walk in clinic closed.\T\nbsp;\T\nbsp; Dr. Zambrano trying to get patient scheduled for 2 week ED follow up. 03/01/2019 [facility] Patient has follow up appt on 05/30/[address] Zambrano. Spoke with viviana; she stated that pt was in ED. I advised her that if pt needs to be seen again or would like to have follow up sooner than 05/30/2019 to contact PCP. 02/11/2018 [facility] - Patient is currently established with [facility]. If patient is seen in the ED during business hours. Please contact CHWs at [facility]. Care Recommendation: This patient has had 5 [...] care. E.D. VISIT COUNT (12 MO.) 7 [facility] TOTAL 7 NOTE: Visits indicate total known visits. ED/UCC VISIT TRACKING (12 MO.) 04/22/2019 20:49 [facility] [place] TYPE: Emergency COMPLAINT: - SKIN PROBLEM 04/06/2019 18:48 [facility] [place] TYPE: Emergency COMPLAINT: - DIZZINESS/HEADACHE DIAGNOSES: - Migraine, unsp, not intractable, without status migrainosus - Other intermediate teacher (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 - Essential (primary) hypertension - Gastro-esophageal reflux disease without esophagitis - Headache - Personal history of nicotine dependence 03/02/2019 09:10 [facility] [place] TYPE: Emergency COMPLAINT: - SHOULDER/ELBOW PAIN DIAGNOSES: - Pain in left shoulder - Calcific tendinitis of left shoulder - Other intermediate teacher (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 - Personal history of nicotine dependence - Essential (primary) hypertension - Gastro-esophageal reflux disease without esophagitis 02/28/2019 16:40 [facility] [place] TYPE: Emergency COMPLAINT: - SHOULDER PAIN, NON INJ DIAGNOSES: - Other intermediate teacher (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 - Other injury of unspecified body region, initial encounter - Essential (primary) hypertension - Personal history of nicotine dependence - Gastro-esophageal reflux disease without esophagitis - Torticollis - Pain in left shoulder - Exposure to other specified factors, initial encounter 08/16/2018 16:35 [facility] [place] TYPE: Emergency COMPLAINT: - LOSS OF CONCIOUSNESS DIAGNOSES: - Gastro-esophageal reflux disease without esophagitis - roasterman (current) use of aspirin - Essential (primary) hypertension - Syncope and collapse - Other prison (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 05/11/2018 11:56 [facility] [place] TYPE: Emergency COMPLAINT: - DIFFICULTY BREATHING/BACK PAIN DIAGNOSES: - Other prison (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 - Encounter for therapeutic drug level monitoring - Personal history of nicotine dependence - Essential (primary) hypertension - Precordial pain - Pleurisy - Gastro-esophageal reflux disease without esophagitis 05/03/2018 21:[address] [facility] [place] TYPE: Emergency COMPLAINT: - CHEST/BACK/RIB PAIN,CONGESTION DIAGNOSES: - Proc/trtmt not crd out d/t pt lv bef seen by [facility] care prov INPATIENT VISIT TRACKING (12 MO.) No inpatient visits to display in this time frame [email or web address]
[2019-04-22] MEDS ORDERED: NORCO 5-325 TA1 EACH PO (22:35)
[2019-04-22] MEDS ORDERED: CEPHALEXIN500 MG PO (22:35)
[2019-04-22] MEDS ORDERED: BACTRIM DS TAB1 EACH PO (22:35)
== END 2019-04-22 22:56 | disposition home or self-care (01) ==
LOC: ED 20:48
DX: L03.116 Cellulitis of left lower limb (principal); K21.9 Gastro-esophageal reflux disease without esophagitis; I10 Essential (primary) hypertension; Z79.899 Other long term (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
CPT/HCPCS: 99283; A9270

== ENCOUNTER 2019-09-17 14:46 | Emergency (ER) | payer OTHER ==
[~2019-09-17] VITALS: Ht 182.9 cm; Wt 149.7 kg
[~2019-09-17 14:46] MED LIST changes: +CEPHALEXIN500 MG PO
--- OUTSIDE RECORDS SUMMARY | 2019-09-17 14:50 | XMS ---
PreManage Notification: HERMILA ZARATE Security Inclinometer Tester Events 1 event(s) in the past 18 months Most recent security events: Elopement at [facility] 05/03/2018 21:46 - Other Details: PATIENT LWOBS- NOT TRIAGED CRITERIA MET - Group Notification - [facility] - Has Care Guidelines - PDMP CARE PROVIDERS SANJEEV ZAMBRANO Internal Medicine 02/11/2018-Current PHONE: Unknown [facility] Date: 08/24/2018 Care Coordination: Mental health services are being provided by [facility].\T\nbsp; Please contact [facility] with mental health concerns.\T\nbsp; Luisa/Darian [facility]: \T\nbsp; [place]: [phone]. Care History Medical/Surgical 04/25/2019 [facility] Follow up visit on 05/30/[address] Zambrano 04/07/2019 [facility] Patient seen in ED after walk in clinic closed.\T\nbsp;\T\nbsp; Dr. Zambrano trying to get patient scheduled for 2 week ED follow up. 03/01/2019 [facility] Patient has follow up appt on 05/30/[address] Zambrano. Spoke with viviana; she stated that pt was in ED. I advised her that if pt needs to be seen again or would like to have follow up sooner than 05/30/2019 to contact PCP. Jean VISIT COUNT (12 MO.) 6 [facility] TOTAL 6 NOTE: Visits indicate total known visits. ED/UCC VISIT TRACKING (12 MO.) 09/17/2019 14:47 [facility] [place] TYPE: Emergency COMPLAINT: - FALL 05/15/2019 00:02 [facility] [place] TYPE: Emergency COMPLAINT: - SKIN PROBLEM DIAGNOSES: - Gastro-esophageal reflux disease without esophagitis - Essential (primary) hypertension - Urticaria, unspecified - Personal history of nicotine dependence - Rash and other nonspecific skin eruption - Other detention (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 04/22/2019 20:49 [facility] [place] TYPE: Emergency COMPLAINT: - SKIN PROBLEM DIAGNOSES: - Cellulitis of left lower limb - Local infection of the skin and subcutaneous tissue, unspecif - Essential (primary) hypertension - Other buttermaker helper (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 - Gastro-esophageal reflux disease without esophagitis 04/06/2019 18:48 [facility] [place] TYPE: Emergency COMPLAINT: - DIZZINESS/HEADACHE DIAGNOSES: - Migraine, unspecified, not intractable, without status migrai - Other detention (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 - Essential (primary) hypertension - Gastro-esophageal reflux disease without esophagitis - Headache - Personal history of nicotine dependence 03/02/2019 09:10 [facility] [place] TYPE: Emergency COMPLAINT: - SHOULDER/ELBOW PAIN DIAGNOSES: - Pain in left shoulder - Calcific tendinitis of left shoulder - Other detention (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 - Personal history of nicotine dependence - Essential (primary) hypertension - Gastro-esophageal reflux disease without esophagitis 02/28/2019 16:40 [facility] [place] TYPE: Emergency COMPLAINT: - SHOULDER PAIN, NON INJ DIAGNOSES: - Other detention (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 - Other injury of unspecified body region, initial encounter - Essential (primary) hypertension - Personal history of nicotine dependence - Gastro-esophageal reflux disease without esophagitis - Torticollis - Pain in left shoulder - Exposure to other specified factors, initial encounter INPATIENT VISIT TRACKING (12 MO.) No inpatient visits to display in this time frame [id number]
[2019-09-17] MEDS ORDERED: GLUCOPHAGE500 MG PO (15:06)
[2019-09-17] MEDS ORDERED: PERCOCET 5-3251 EACH PO (17:42)
== END 2019-09-17 18:28 | disposition home or self-care (01) ==
LOC: ED 14:46
DX: S76.912A Strain of unspecified muscles, fascia and tendons at thigh level, left thigh, initial encounter (principal); K21.9 Gastro-esophageal reflux disease without esophagitis; I10 Essential (primary) hypertension; Z87.891 Personal history of nicotine dependence; Z79.899 Other long term (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; X58.XXXA Exposure to other specified factors, initial encounter
CPT/HCPCS: 73502; 73700; 96374; 96375; 96376; 99284-25; J1170; J1885

== ENCOUNTER 2020-03-15 17:31 | Emergency (ER) | payer OTHER ==
[~2020-03-15] VITALS: Ht 182.9 cm; Wt 149.7 kg
[~2020-03-15 17:31] MED LIST changes: +GLUCOPHAGE500 MG PO
--- OUTSIDE RECORDS SUMMARY | 2020-03-15 17:34 | XMS ---
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 Zambrano. 04/25/2019 [facility] Follow up visit on 05/30/[address] Zambrano 04/07/2019 [facility] Patient seen in ED after walk in clinic closed.\T\nbsp;\T\nbsp; Dr. Zambrano trying to get patient scheduled for 2 week ED follow up. E.D. VISIT COUNT (12 MO.) 5 [facility] TOTAL 5 NOTE: Visits indicate total known visits. ED/UCC VISIT TRACKING (12 MO.) 03/15/2020 17:31 [facility] [place] TYPE: Emergency COMPLAINT: - RT FOOT INJURY 09/17/2019 14:47 [facility] [place] TYPE: Emergency COMPLAINT: - FALL DIAGNOSES: - Essential (primary) hypertension - Gastro-esophageal reflux disease without esophagitis - Other residential (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 - Pain in left hip - Exposure to other specified factors, initial encounter - Strain of unspecified muscles, fascia and tendons at thigh level, left thigh, initial encounter - Personal history of nicotine dependence 05/15/2019 00:02 [facility] [place] TYPE: Emergency COMPLAINT: - SKIN PROBLEM DIAGNOSES: - Gastro-esophageal reflux disease without esophagitis - Essential (primary) hypertension - Urticaria, unspecified - Personal history of nicotine dependence - Rash and other nonspecific skin eruption - Other residential (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 04/22/2019 20:49 [facility] [place] TYPE: Emergency COMPLAINT: - SKIN PROBLEM DIAGNOSES: - Cellulitis of left lower limb - Local infection of the skin and subcutaneous tissue, unspecified - Essential (primary) hypertension - Other residential (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 - Gastro-esophageal reflux disease without esophagitis 04/06/2019 18:48 [facility] [place] TYPE: Emergency COMPLAINT: - DIZZINESS/HEADACHE DIAGNOSES: - Migraine, unspecified, not intractable, without status migrainosus - Other intermediate frame tender (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 - Essential (primary) hypertension - Gastro-esophageal reflux disease without esophagitis - Headache - Personal history of nicotine dependence INPATIENT VISIT TRACKING (12 MO.) No inpatient visits to display in this time frame [email or web address]
== END 2020-03-15 18:55 | disposition home or self-care (01) ==
LOC: ED 17:31
DX: S93.601A Unspecified sprain of right foot, initial encounter (principal); X50.1XXA Overexertion from prolonged static or awkward postures, initial encounter; K21.9 Gastro-esophageal reflux disease without esophagitis; I10 Essential (primary) hypertension; J44.9 Chronic obstructive pulmonary disease, unspecified; E11.9 Type 2 diabetes mellitus without complications; Z87.891 Personal history of nicotine dependence; Z79.899 Other long term (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; Z79.84 Long term (current) use of oral hypoglycemic drugs
CPT/HCPCS: 73630; 99283-25

== ENCOUNTER 2020-03-31 19:09 | Emergency (ER) | payer OTHER ==
[~2020-03-31] VITALS: Ht 182.9 cm; Wt 113.4 kg
--- OUTSIDE RECORDS SUMMARY | 2020-03-31 19:12 | XMS ---
PreManage Notification: HERMILA ZARATE Security Candy Decorator Events No recent Security Events currently on file CRITERIA MET - Group Notification - - Has Care Guidelines - - 2 Visits in 30 Days CARE PROVIDERS SANJEEV ZAMBRANO Internal Medicine 02/11/2018-Current PHONE: Unknown Care Guidelines exist for the following facilities: [facility] ( 08/24/2018 ) Care History Medical/Surgical 09/19/2019 [facility] Patient has follow up scheduled for 09/30/[address] Zambrano. 04/25/2019 [facility] Follow up visit on 05/30/[address] Zambrano 04/07/2019 [facility] Patient seen in ED after walk in clinic closed.\T\nbsp;\T\nbsp; Dr. Zambrano trying to get patient scheduled for 2 week ED follow up. E.D. VISIT COUNT (12 MO.) 6 [facility] TOTAL 6 NOTE: Visits indicate total known visits. ED/UCC VISIT TRACKING (12 MO.) 03/31/2020 19:10 [facility] [place] TYPE: Emergency COMPLAINT: - RT FOOT PAIN 03/15/2020 17:31 [facility] [place] TYPE: Emergency COMPLAINT: - RT FOOT INJURY DIAGNOSES: - Chronic obstructive pulmonary disease, unspecified - Type 2 diabetes mellitus without complications - Gastro-esophageal reflux disease without esophagitis - Essential (primary) hypertension - Unspecified sprain of right foot, initial encounter - Pain in right foot - Personal history of nicotine dependence - USP (current) use of oral hypoglycemic drugs - Overexertion from prolonged static or awkward postures, initial encounter - Other long term care social worker (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 09/17/2019 14:47 [facility] [place] TYPE: Emergency COMPLAINT: - FALL DIAGNOSES: - Essential (primary) hypertension - Gastro-esophageal reflux disease without esophagitis - Other intermediate (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 - Pain in left [...] and other nonspecific skin eruption - Other long term care social worker (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 04/22/2019 20:49 [facility] [place] TYPE: Emergency COMPLAINT: - SKIN PROBLEM DIAGNOSES: - Cellulitis of left lower limb - Local infection of the skin and subcutaneous tissue, unspecified - Essential (primary) hypertension - Other long term care social worker (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 - Gastro-esophageal reflux disease without esophagitis 04/06/2019 18:48 [facility] [place] TYPE: Emergency COMPLAINT: - DIZZINESS/HEADACHE DIAGNOSES: - Migraine, unspecified, not intractable, without status migrainosus - Other intermediate (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 - Essential (primary) hypertension - Gastro-esophageal reflux disease without esophagitis - Headache - Personal history of nicotine dependence INPATIENT VISIT TRACKING (12 MO.) No inpatient visits to display in this time frame [id number]
[2020-03-31] MEDS ORDERED: NORCO 5-325 TA1 EACH PO (19:51)
== END 2020-03-31 20:13 | disposition home or self-care (01) ==
LOC: ED 19:09
DX: S92.354A Nondisplaced fracture of fifth metatarsal bone, right foot, initial encounter for closed fracture (principal); X50.9XXA Other and unspecified overexertion or strenuous movements or postures, initial encounter; K21.9 Gastro-esophageal reflux disease without esophagitis; I10 Essential (primary) hypertension; J44.9 Chronic obstructive pulmonary disease, unspecified; E11.9 Type 2 diabetes mellitus without complications; Z79.899 Other long term (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; Z79.4 Long term (current) use of insulin
CPT/HCPCS: 73630; 99283-25

== ENCOUNTER 2020-04-28 19:15 | Emergency (ER) | payer OTHER ==
[~2020-04-28] VITALS: Ht 182.9 cm; Wt 136.1 kg
--- OUTSIDE RECORDS SUMMARY | 2020-04-28 19:18 | XMS ---
PreManage Notification: HERMILA ZARATE Security Admin Secretary Events No recent Security Events currently on file CRITERIA MET - Group Notification - [facility] - Has Care Guidelines - [facility] - 2 Visits in 30 Days CARE PROVIDERS CAMERON ZAMBRANOLM Internal Medicine 04/02/2020-Current PHONE: Unknown Care Guidelines exist for the following facilities: [facility] ( 08/24/2018 ) Care History Medical/Surgical 09/19/[address] [facility] Patient has follow up scheduled for 09/30/[address] Zambrano. 04/25/[address] [facility] Follow up visit on 05/30/[address] Zambrano 04/07/[address] [facility] Patient seen in ED after walk in clinic closed.\T\nbsp;\T\nbsp; Dr. Zambrano trying to get patient scheduled for 2 week ED follow up. E.D. VISIT COUNT (12 MO.) 5 DAVID Astudillo TOTAL 5 NOTE: Visits indicate total known visits. ED/UCC VISIT TRACKING (12 MO.) 04/28/2020 19:16 DAV[facility] Denise [place] TYPE: Emergency COMPLAINT: - SHOULDER POPPED AND IS PAINFUL 03/31/2020 19:10 DAV[facility] Denise [place] TYPE: Emergency COMPLAINT: - RT FOOT PAIN DIAGNOSES: - Gastro-esophageal reflux disease without esophagitis - Pain in right foot - Nondisplaced fracture of fifth metatarsal bone, right foot, initial encounter for closed fracture - Essential (primary) hypertension - Other correction (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 - Type 2 diabetes mellitus without complications - Other and unspecified overexertion or strenuous movements or postures, initial encounter - [facility] (current) use of insulin - [facility]FP (current) use of oral hypoglycemic drugs - Chronic obstructive pulmonary disease, unspecified 03/15/2020 17:31 [facility] Den[facility] [place] TYPE: Emergency COMPLAINT: - RT FOOT INJURY DIAGNOSES: - Chronic obstructive pulmonary disease, unspecified - Type 2 diabetes mellitus without complications - Gastro-esophageal reflux disease without esophagitis - Essential (primary) hypertension - Unspecified sprain of right foot, initial encounter - Pain in right foot - Personal history of nicotine dependence - district branch manager (current) use of oral hypoglycemic drugs - Overexertion from prolonged static or awkward postures, initial encounter - Other data support specialist (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 09/17/2019 14:47 DAVID Denise [place] TYPE: Emergency COMPLAINT: - FALL DIAGNOSES: - Essential (primary) hypertension - Gastro-esophageal reflux disease without esophagitis - Other data support specialist (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 - Pain in left [...] and other nonspecific skin eruption - Other data support specialist (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 INPATIENT VISIT TRACKING (12 MO.) No inpatient visits to display in this time frame [email or web address]
[2020-04-28] MEDS ORDERED: DICLOFENAC SODI75 MG PO (20:02)
[2020-04-28] MEDS ORDERED: PERCOCET 5-3251 EACH PO (20:02)
== END 2020-04-28 20:18 | disposition home or self-care (01) ==
LOC: ED 19:15
DX: S46.911A Strain of unspecified muscle, fascia and tendon at shoulder and upper arm level, right arm, initial encounter (principal); X58.XXXA Exposure to other specified factors, initial encounter; K21.9 Gastro-esophageal reflux disease without esophagitis; I10 Essential (primary) hypertension; J44.9 Chronic obstructive pulmonary disease, unspecified; E11.9 Type 2 diabetes mellitus without complications; Z87.891 Personal history of nicotine dependence; Z79.899 Other long term (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; Z79.84 Long term (current) use of oral hypoglycemic drugs
CPT/HCPCS: 73030; 99283-25

== ENCOUNTER 2020-08-12 10:54 | Emergency (ER) | payer OTHER ==
[~2020-08-12] VITALS: Ht 182.9 cm; Wt 136.1 kg
[~2020-08-12 10:54] MED LIST changes: +DICLOFENAC SODI75 MG PO
--- OUTSIDE RECORDS SUMMARY | 2020-08-12 10:58 | XMS ---
PreManage Notification: HERMILA ZARATE Security Cutter Hot Knife Events No recent Security Events currently on file CRITERIA MET - Group Notification - [facility] - Has Care Guidelines CARE PROVIDERS CAMERON ZAMBRANOLM Internal Medicine 04/02/2020-Current PHONE: Unknown Care Guidelines exist for the following facilities: [facility] ( 05/21/2020 ) Care History Medical/Surgical 09/19/2019 [facility] Patient has follow up scheduled for 09/30/[address] Zambrano. 04/25/2019 [facility] Follow up visit on 05/30/[address] Zambrano 04/07/2019 [facility] Patient seen in ED after walk in clinic closed.\T\nbsp;\T\rachelp; Dr. Zambrano trying to get patient scheduled for 2 week ED follow up. E.D. VISIT COUNT (12 MO[address] [facility] TOTAL 5 NOTE: Visits indicate total known visits. ED/UCC VISIT TRACKING (12 MO.) 08/12/2020 10:55 DAVID Denise [place] TYPE: Emergency COMPLAINT: - COUGHING UP FLEM 04/28/2020 19:16 DAVID Denise [place] TYPE: Emergency COMPLAINT: - SHOULDER POPPED AND IS PAINFUL DIAGNOSES: - Personal history of nicotine dependence - Strain of unspecified muscle, fascia and tendon at shoulder and upper arm level, right arm, initial encounter - Type 2 diabetes mellitus without complications - superintendent marine oil terminal (current) use of oral hypoglycemic drugs - Exposure to other specified factors, initial encounter - Gastro-esophageal reflux disease without esophagitis - Chronic obstructive pulmonary disease, unspecified - Other custodial (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 - Emphysema, unspecified - Essential (primary) hypertension 03/31/2020 19:10 DAVID Denise [place] TYPE: Emergency COMPLAINT: - RT FOOT PAIN DIAGNOSES: - Gastro-esophageal reflux disease without esophagitis - Pain in right foot - Nondisplaced fracture of fifth metatarsal bone, right foot, initial encounter for closed fracture - Essential (primary) hypertension - Other ferry terminal supervisor (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 - Type 2 diabetes mellitus without complications - Other and unspecified overexertion or strenuous movements or postures, initial encounter - [facility] (current) use of insulin - [facility]PC (current) use of oral hypoglycemic drugs - [...] - Personal history of nicotine dependence - 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 [place] TYPE: Emergency COMPLAINT: - FALL DIAGNOSES: - Essential (primary) hypertension - Gastro-esophageal reflux disease without esophagitis - Other custodial (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 - Pain in left hip - Exposure to other specified factors, initial encounter - Strain of unspecified muscles, fascia and tendons at thigh level, left thigh, initial encounter - Personal history of nicotine dependence INPATIENT VISIT TRACKING (12 MO.) No inpatient visits to display in this time frame [email or web address]
[2020-08-12] MEDS ORDERED: PREDNISONE20 MG PO (14:58)
== END 2020-08-12 15:30 | disposition home or self-care (01) ==
LOC: ED 10:54
DX: U07.1 COVID-19 (principal); J44.1 Chronic obstructive pulmonary disease with (acute) exacerbation; I10 Essential (primary) hypertension; K21.9 Gastro-esophageal reflux disease without esophagitis; E11.9 Type 2 diabetes mellitus without complications; Z87.891 Personal history of nicotine dependence; Z79.899 Other long term (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; Z79.84 Long term (current) use of oral hypoglycemic drugs
CPT/HCPCS: 71045; 99284-25; C9803; J7050; J7512; M0245; U0003

== ENCOUNTER 2021-05-09 21:20 | Emergency (ER) | payer OTHER ==
[~2021-05-09] VITALS: Ht 182.9 cm; Wt 149.7 kg
[~2021-05-09 21:20] MED LIST changes: +DULOXETINE HCL60 MG PO; +HYDROCODON-ACE1 EA11 PO; +PREDNISONE20 MG PO; +VITAMIN B-122000 MC1 PO; +VITAMIN B-6100 MG PO
--- OUTSIDE RECORDS SUMMARY | 2021-05-09 21:22 | XMS ---
PreManage Notification: HERMILA ZARATE Security Fur Nailer Events No recent Security Events currently on file CRITERIA MET - Group Notification - ED - Positive COVID-19 Lab Result - [facility] CARE PROVIDERS TERRI ZAMBRANOCOLM Internal Medicine 04/02/2020-Current PHONE: Unknown Care Guidelines exist for the following facilities: [facility] ( 05/21/2020 ) Care History Medical/Surgical 09/19/2019 [facility] Patient has follow up scheduled for 09/30/[address] Zambrano. 04/25/2019 [facility] Follow up visit on 05/30/[address] Zambrano 04/07/2019 [facility] Patient seen in ED after walk in clinic closed.\T\nbsp;\T\rachelp; Dr. Zambrano trying to get patient scheduled for 2 week ED follow up. E.D. VISIT COUNT (12 MO.) 2 DAVID Astudillo TOTAL 2 NOTE: Visits indicate total known visits. ED/UCC VISIT TRACKING (12 MO.) 05/09/2021 21:21 DAVID Denise [place] TYPE: Emergency COMPLAINT: - RIGHT SHOULDER PAIN 08/12/2020 10:55 DAVID Denise [place] TYPE: Emergency COMPLAINT: - COUGHING UP FLEM DIAGNOSES: - Type 2 diabetes mellitus without complications - COVID-19 - Other mcfp (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 - Gastro-esophageal reflux disease without esophagitis - correction (current) use of oral hypoglycemic drugs - Chronic obstructive pulmonary disease with (acute) exacerbation - Personal history of nicotine dependence - Cough - Essential (primary) hypertension INPATIENT VISIT TRACKING (12 MO.) No inpatient visits to display in this time frame [email or web address]
[2021-05-09] MEDS ORDERED: HYDROCODON-ACE1 EA10 PO (22:14)
== END 2021-05-09 22:59 | disposition home or self-care (01) ==
LOC: ED 21:20
DX: M19.011 Primary osteoarthritis, right shoulder (principal); I10 Essential (primary) hypertension; K21.9 Gastro-esophageal reflux disease without esophagitis; J43.9 Emphysema, unspecified; E11.9 Type 2 diabetes mellitus without complications; Z87.891 Personal history of nicotine dependence; Z79.899 Other long term (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; Z79.51 Long term (current) use of inhaled steroids; Z79.84 Long term (current) use of oral hypoglycemic drugs
CPT/HCPCS: 73030; 96374; 99283-25; J1170; J1885

== ENCOUNTER 2021-06-28 21:48 | Emergency (ER) | payer OTHER ==
[~2021-06-28] VITALS: Ht 182.9 cm; Wt 144.0 kg
[~2021-06-28 21:48] MED LIST changes: +HYDROCODON-ACE1 EA10 PO
--- OUTSIDE RECORDS SUMMARY | 2021-06-28 21:50 | XMS ---
PreManage Notification: HERMILA ZARATE Security Sfdc Consultant Events No recent Security Events currently on file CRITERIA MET - ED - Positive COVID-19 Lab Result - [facility] - 2 Visits in 30 Days - Group Notification CARE PROVIDERS CAMERON ZAMBRANOLM Internal Medicine 04/02/2020-Current PHONE: Unknown Care Guidelines exist for the following facilities: [facility] ( 05/21/2020 ) Care History Medical/Surgical 09/19/2019 [facility] Patient has follow up scheduled for 09/30/[address] Zambrano. 04/25/2019 [facility] Follow up visit on 05/30/[address] Zambrano 04/07/2019 [facility] Patient seen in ED after walk in clinic closed.\T\nbsp;\T\nbsp; Dr. Zambrano trying to get patient scheduled for 2 week ED follow up. E.D. VISIT COUNT (12 MO.) 4 DAVID Astudillo TOTAL 4 NOTE: Visits indicate total known visits. ED/UCC VISIT TRACKING (12 MO.) 06/28/2021 21:48 DAVID Denise [place] TYPE: Emergency COMPLAINT: - R LEG PAIN 06/18/2021 21:05 DAVID Denise [place] TYPE: Emergency COMPLAINT: - SKIN PROBLEM, LWOB 05/09/2021 21:21 DAVID Denise [place] TYPE: Emergency COMPLAINT: - RIGHT SHOULDER PAIN DIAGNOSES: - penitentiary (current) use of oral hypoglycemic drugs - Gastro-esophageal reflux disease without esophagitis - Type 2 diabetes mellitus without complications - Other termite exterminator (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 - Essential (primary) hypertension - Primary osteoarthritis, right shoulder - Personal history of nicotine dependence - Emphysema, unspecified - penitentiary (current) use of inhaled steroids - Pain in right shoulder 08/12/2020 10:55 DAVID Denise [place] TYPE: Emergency COMPLAINT: - COUGHING UP FLEM DIAGNOSES: - Type 2 diabetes mellitus without complications - COVID-19 - Other residential (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 - Gastro-esophageal reflux disease without esophagitis - roasterman (current) use of oral hypoglycemic drugs - Chronic obstructive pulmonary disease with (acute) exacerbation - Personal history of nicotine dependence - Cough - Essential (primary) hypertension INPATIENT VISIT TRACKING (12 MO.) No inpatient visits to display in this time frame [email or web address]
[2021-06-28] MEDS ORDERED: METFORMIN HCL500 MG PO (22:01)
[2021-06-28] MEDS ORDERED: PERCOCET 5-3251 EACH PO (23:17)
== END 2021-06-28 23:34 | disposition home or self-care (01) ==
LOC: ED 21:48
DX: S76.811A Strain of other specified muscles, fascia and tendons at thigh level, right thigh, initial encounter (principal); K21.9 Gastro-esophageal reflux disease without esophagitis; I10 Essential (primary) hypertension; J43.9 Emphysema, unspecified; E11.9 Type 2 diabetes mellitus without complications; Z87.891 Personal history of nicotine dependence; Z79.899 Other long term (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; Z79.51 Long term (current) use of inhaled steroids; Z79.84 Long term (current) use of oral hypoglycemic drugs; W01.0XXA Fall on same level from slipping, tripping and stumbling without subsequent striking against object, initial encounter
CPT/HCPCS: 36415; 80048; 82553; 85025; 96372; 99283; J2270

== ENCOUNTER 2021-07-18 20:41 | Emergency (ER) | payer OTHER ==
[~2021-07-18] VITALS: Ht 182.9 cm; Wt 143.8 kg
[~2021-07-18 20:41] MED LIST changes: +METFORMIN HCL500 MG PO
--- OUTSIDE RECORDS SUMMARY | 2021-07-18 20:44 | XMS ---
PreManage Notification: HERMILA ZARATE Security Rn Licensed Practical Events 1 event(s) in the past 18 months Most recent security events: Elopement at [facility] 06/18/2021 21:05 Details: PATIENT LWBS CRITERIA MET - ED - Positive COVID-19 Lab Result - [facility] - Group Notification - [facility] - 2 Visits in 30 Days - PDMP CARE PROVIDERS CAMERON ZAMBRANOLM Internal Medicine 04/02/2020-Current PHONE: Unknown Care Guidelines exist for the following facilities: [facility] ( 05/21/2020 ) Care History Medical/Surgical 09/19/2019 [facility] Patient has follow up scheduled for 09/30/[address] Zambrano. 04/25/2019 [facility] Follow up visit on 05/30/[address] Zambrano 04/07/2019 [facility] Patient seen in ED after walk in clinic closed.\T\nbsp;\T\nbsp; Dr. Zambrano trying to get patient scheduled for 2 week ED follow up. E.D. VISIT COUNT (12 MO.) [address] [facility] TOTAL 5 NOTE: Visits indicate total known visits. ED/UCC VISIT TRACKING (12 MO.) 07/18/2021 20:42 DAVID Denise [place] TYPE: Emergency COMPLAINT: - LEFT FOOT INJ 06/28/2021 21:48 DAVID Denise [place] TYPE: Emergency COMPLAINT: - R LEG PAIN/ NON INJURY DIAGNOSES: - continuous churn buttermaker (current) use of oral hypoglycemic drugs - Pain in right leg - Personal history of nicotine dependence - Fall on same level from slipping, tripping and stumbling without subsequent striking against object, initial encounter - Type 2 diabetes mellitus without complications - Strain of other specified muscles, fascia and tendons at thigh level, right thigh, initial encounter - Emphysema, unspecified - Other assisted (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 - shelter (current) use of inhaled steroids - Gastro-esophageal reflux disease without esophagitis - Essential (primary) hypertension 06/18/2021 21:05 DAVID Denise [place] TYPE: Emergency COMPLAINT: - SKIN PROBLEM, LWOB 05/09/2021 21:21 DAVID Denise [place] TYPE: Emergency COMPLAINT: - RIGHT SHOULDER PAIN DIAGNOSES: - continuous churn buttermaker (current) 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 [place] TYPE: Emergency COMPLAINT: - COUGHING UP FLEM DIAGNOSES: - Type 2 diabetes mellitus without complications - COVID-19 - Other continuous churn buttermaker (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 - Gastro-esophageal reflux disease without esophagitis - continuous churn buttermaker (current) use of oral hypoglycemic drugs - Chronic obstructive pulmonary disease with (acute) exacerbation - Personal history of nicotine dependence - Cough - Essential (primary) hypertension INPATIENT VISIT TRACKING (12 MO.) No inpatient visits to display in this time frame [email or web address]
[2021-07-18] MEDS ORDERED: HYDROCODON-ACE1 EA10 PO (22:37)
== END 2021-07-18 22:55 | disposition home or self-care (01) ==
LOC: ED 20:41
DX: M79.672 Pain in left foot (principal); K21.9 Gastro-esophageal reflux disease without esophagitis; I10 Essential (primary) hypertension; J43.9 Emphysema, unspecified; E11.9 Type 2 diabetes mellitus without complications; Z87.891 Personal history of nicotine dependence; Z79.899 Other long term (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; Z79.51 Long term (current) use of inhaled steroids; Z79.84 Long term (current) use of oral hypoglycemic drugs
CPT/HCPCS: 73610; 73630; 96372; 99283-25; A9270; J1885

== ENCOUNTER 2021-09-07 00:08 | Emergency (ER) | payer OTHER ==
[~2021-09-07] VITALS: Ht 182.9 cm; Wt 142.2 kg
--- OUTSIDE RECORDS SUMMARY | 2021-09-07 00:12 | XMS ---
PreManage Notification: HERMILA ZARATE Security Contact Acid Plant Operator Events 1 event(s) in the past 18 months Most recent security events: Elopement at [facility] 06/18/2021 21:05 Details: PATIENT LWBS CRITERIA MET - 6 ED Visits in 6 Months - Group Notification - [facility] - [facility] - 2 Visits in 30 Days CARE PROVIDERS SANJEEV ZAMBRANO Internal Medicine 04/02/2020-Current PHONE: Unknown Care Guidelines exist for the following facilities: [facility] ( 05/21/2020 ) Care History Medical/Surgical 09/19/2019 [facility] Patient has follow up scheduled for 09/30/[address] Zambrano. 04/25/2019 [facility] Follow up visit on 05/30/[address] Zambrano 04/07/2019 [facility] Patient seen in ED after walk in clinic closed.\T\nbsp;\T\nbsp; Dr. Zambrano trying to get patient scheduled for 2 week ED follow up. E.D. VISIT COUNT (12 MO.) [address] [facility] TOTAL 6 NOTE: Visits indicate total known visits. 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 - Emphysema, unspecified - Personal history of nicotine dependence - Pain in left foot - Type 2 diabetes mellitus without complications 06/28/2021 21:48 DAVID Denise [place] TYPE: Emergency COMPLAINT: - R LEG PAIN/ NON INJURY DIAGNOSES: - nursing home (current) use of oral hypoglycemic drugs - Pain in right leg - Personal history of nicotine dependence - Fall on same level from slipping, tripping and stumbling without subsequent striking against object, initial encounter - Type 2 diabetes mellitus without complications - Strain of other specified muscles, fascia and tendons at thigh level, right thigh, initial encounter - Emphysema, unspecified - Other intermission coordinator (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 - nursing home (current) use of inhaled steroids - Gastro-esophageal reflux disease without esophagitis - Essential (primary) hypertension 06/18/2021 21:05 DAVID eDnise [place] TYPE: Emergency COMPLAINT: - SKIN PROBLEM, LWOB 05/09/2021 21:21 DAVID Denise [place] TYPE: Emergency COMPLAINT: - RIGHT SHOULDER PAIN DIAGNOSES: - nursing home (current) use of oral hypoglycemic drugs - Gastro-esophageal reflux disease without esophagitis - Type 2 diabetes mellitus without complications - Other alf (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 - Essential (primary) hypertension - Primary osteoarthritis, right shoulder - Personal history of nicotine dependence - Emphysema, unspecified - 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
[2021-09-07] MEDS ORDERED: CRUTCHES XX (00:49)
== END 2021-09-07 01:23 | disposition home or self-care (01) ==
LOC: ED 00:08
DX: M79.671 Pain in right foot (principal); K21.9 Gastro-esophageal reflux disease without esophagitis; I10 Essential (primary) hypertension; J43.9 Emphysema, unspecified; E11.9 Type 2 diabetes mellitus without complications; Z87.891 Personal history of nicotine dependence; Z79.899 Other long term (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; Z79.84 Long term (current) use of oral hypoglycemic drugs
CPT/HCPCS: 73630; 99283-25; A9270

== ENCOUNTER 2021-10-07 18:46 | Emergency (ER) | payer OTHER ==
[~2021-10-07] VITALS: Ht 182.9 cm; Wt 143.3 kg
[~2021-10-07 18:46] MED LIST changes: +CRUTCHES XX
--- OUTSIDE RECORDS SUMMARY | 2021-10-07 18:50 | XMS ---
PreManage Notification: HERMILA ZARATE Security Job Boss Events 2 event(s) in the past 18 months Most recent security events: Elopement at [facility] 09/04/2021 21:53 - Patient eloped before treatment completed. - Patient with suicidal and/or homicidal ideations eloped. - Patient eloped with IV in place. Details: PATIENT LWBS Elopement at [facility] 06/18/2021 21:05 Details: PATIENT LWBS CRITERIA MET - Group Notification - [facility] - 2 Visits in 30 Days - PDMP - 6 ED Visits in 6 Months CARE PROVIDERS SANJEEV ZAMBRANO Internal Medicine 04/02/2020-Current PHONE: Unknown Care Guidelines exist for the following facilities: [facility] ( 05/21/2020 ) Care History Medical/Surgical 09/19/2019 [facility] Patient has follow up scheduled for 09/30/[address] Zambrano. 04/25/2019 [facility] Follow up visit on 05/30/[address] Zambrano 04/07/2019 [facility] Patient seen in ED after walk in clinic closed.\T\nbsp;\T\nbsp; Dr. Zambrano trying to get patient scheduled for 2 week ED follow up. Miranda VISIT COUNT (12 MO.) 7 [facility] TOTAL 7 NOTE: Visits indicate total known visits. ED/C VISIT TRACKING (12 MO.) [facility] COMPLAINT: - RIB PAIN 09/07/2021 00:09 DAVID Denise [place] TYPE: Emergency COMPLAINT: - RIGHT FOOT PAIN/ SWELLING DIAGNOSES: - Gastro-esophageal reflux disease without esophagitis - Personal history of nicotine dependence - Type 2 diabetes mellitus without complications - terminal worker (current) use of oral hypoglycemic drugs - Essential (primary) hypertension - Other intermediate project manager (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 - Emphysema, unspecified - Pain in right foot 09/04/2021 21:53 DAVID Denise [place] TYPE: Emergency COMPLAINT: - SWOLLEN FOOT 07/18/2021 20:42 DAVID Denise [place] TYPE: Emergency COMPLAINT: - LEFT FOOT INJ DIAGNOSES: - Other intermediate project manager (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 - Gastro-esophageal reflux disease without esophagitis - [facility] (current) use of oral hypoglycemic drugs - Essential (primary) hypertension - [facility] (current) use of inhaled steroids - Emphysema, unspecified - Personal history of nicotine dependence - Pain in left foot - Type 2 diabetes mellitus without complications 06/28/2021 21:48 DAVID Denise [place] TYPE: Emergency COMPLAINT: - R LEG PAIN/ NON INJURY DIAGNOSES: - terminal worker (current) use of oral hypoglycemic drugs - Pain in right leg - Personal history of nicotine dependence - Fall on same level from slipping, tripping and stumbling without subsequent striking against object, initial encounter - Type 2 diabetes mellitus without complications - Strain of other specified muscles, fascia and tendons at thigh level, right thigh, initial encounter - Emphysema, unspecified - Other halfway (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 - [facility] (current) use of inhaled steroids - Gastro-esophageal reflux disease without esophagitis - Essential (primary) hypertension 06/18/2021 21:05 [facility] Denise [place] TYPE: Emergency COMPLAINT: - SKIN PROBLEM, LWOB 05/09/2021 21:21 DAVID Denise [place] TYPE: Emergency COMPLAINT: - RIGHT SHOULDER PAIN DIAGNOSES: - [facility] (current) use of oral hypoglycemic drugs - Gastro-esophageal reflux disease without esophagitis - Type 2 diabetes mellitus without complications - Other halfway (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 - Essential (primary) hypertension - Primary osteoarthritis, right shoulder - Personal history of nicotine dependence - Emphysema, unspecified - [facility] (current) use of inhaled steroids - Pain in right shoulder INPATIENT VISIT TRACKING (12 MO.) No inpatient visits to display in this time frame [email or web address]
[2021-10-07] MEDS ORDERED: HYDROCODON-ACE1 EA10 PO (21:55)
== END 2021-10-07 22:15 | disposition home or self-care (01) ==
LOC: ED 18:46
DX: S30.1XXA Contusion of abdominal wall, initial encounter (principal); S20.211A Contusion of right front wall of thorax, initial encounter; V86.56XA Driver of dirt bike 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 bike injured in nontraffic accident, initial encounter; I10 Essential (primary) hypertension; E11.9 Type 2 diabetes mellitus without complications; J43.9 Emphysema, unspecified; Z87.891 Personal history of nicotine dependence
CPT/HCPCS: 36415; 71045; 74177; 80053; 81001; 83690; 85025; A9270; J1170; J2405; J7030; Q9967

== ENCOUNTER 2021-11-28 14:17 | Emergency (ER) | payer OTHER ==
[~2021-11-28] VITALS: Ht 182.9 cm; Wt 150.1 kg
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
[2021-11-28] MEDS ORDERED: TOPIRAMATE50 MG PO (14:37)
[2021-11-28] MEDS ORDERED: PREDNISONE20 MG PO (16:18)
[2021-11-28] MEDS ORDERED: SOMA350 MG PO (16:21)
== END 2021-11-28 16:40 | disposition home or self-care (01) ==
LOC: ED 14:17
DX: M54.50 Low back pain, unspecified (principal); I10 Essential (primary) hypertension; K21.9 Gastro-esophageal reflux disease without esophagitis; J43.9 Emphysema, unspecified; E11.9 Type 2 diabetes mellitus without complications; Z87.891 Personal history of nicotine dependence; Z79.899 Other long term (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
CPT/HCPCS: 96374; 96375; 99283-25; A9270; J1100; J1885

== ENCOUNTER 2021-11-30 04:37 | Emergency (ER) | payer OTHER ==
[~2021-11-30] VITALS: Ht 182.9 cm; Wt 150.1 kg
[~2021-11-30 04:37] MED LIST changes: +SOMA350 MG PO; +TOPIRAMATE50 MG PO
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
[2021-11-30] MEDS ORDERED: HYDROCODON-ACE1 EA10 PO (05:34)
== END 2021-11-30 06:01 | disposition home or self-care (01) ==
LOC: ED 04:37
DX: S39.012A Strain of muscle, fascia and tendon of lower back, initial encounter (principal); I10 Essential (primary) hypertension; K21.9 Gastro-esophageal reflux disease without esophagitis; J43.9 Emphysema, unspecified; E11.9 Type 2 diabetes mellitus without complications; Z87.891 Personal history of nicotine dependence; Z79.899 Other long term (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; Z79.84 Long term (current) use of oral hypoglycemic drugs; X58.XXXA Exposure to other specified factors, initial encounter
CPT/HCPCS: 72100; 96372; 99283-25; A9270; J1170; J1885; J3360

== ENCOUNTER 2021-12-24 09:19 | Emergency (ER) | payer OTHER ==
[~2021-12-24] VITALS: Ht 182.9 cm; Wt 135.1 kg
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
[2021-12-24] MEDS ORDERED: DILAUDID2 MG PO (12:59)
[2021-12-24] MEDS ORDERED: ONDANSETRON ODT4 MG PO (12:59)
[2021-12-25] MEDS ORDERED: PROMETHAZINE HC25 M1 PO (09:31)
== END 2021-12-24 13:13 | disposition home or self-care (01) ==
LOC: ED 09:19
DX: C22.8 Malignant neoplasm of liver, primary, unspecified as to type (principal); K21.9 Gastro-esophageal reflux disease without esophagitis; I10 Essential (primary) hypertension; J43.9 Emphysema, unspecified; E11.9 Type 2 diabetes mellitus without complications; Z79.899 Other long term (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; Z87.891 Personal history of nicotine dependence; Z79.84 Long term (current) use of oral hypoglycemic drugs
CPT/HCPCS: 36415; 74177; 80053; 81001; 83690; 83735; 85025; 96361; 96375; 96376; 99284-25; J1170; J2405; J7040; Q9967

== ENCOUNTER 2021-12-25 03:53 | Emergency (ER) | payer OTHER ==
[~2021-12-25] VITALS: Ht 182.9 cm; Wt 134.7 kg
[~2021-12-25 03:53] MED LIST changes: +DILAUDID2 MG PO; +ONDANSETRON ODT4 MG PO
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
[2021-12-25] MEDS ORDERED: PROMETHAZINE HC25 M1 PO (09:31)
--- NOTE | 2021-12-26 20:03 | EKG ---
[facility] [address] [facility] [place] [address] Signed Normal sinus rhythm Normal ECG When compared with ECG of 27-SEP-2020 11:14, No significant change was found Confirmed by Hayden Escobar MD () on 12/26/2021 8:03:52 PM Electronically Signed By: HAYDEN ESCOBAR MD 12/26/212002 PATIENT NAME: HERMILA ZARATE Electrocardiogram DATE OF : 70 PHYSICIAN: HAYDEN ESCOBAR MD REPORT #: [id number] REPORT IS CONFIDENTIAL AND NOT TO BE RELEASED WITHOUT AUTHORIZATION
== END 2021-12-25 10:11 | disposition home or self-care (01) ==
LOC: ED 03:53
DX: C79.51 Secondary malignant neoplasm of bone (principal); C22.8 Malignant neoplasm of liver, primary, unspecified as to type; I10 Essential (primary) hypertension; K21.9 Gastro-esophageal reflux disease without esophagitis; J43.9 Emphysema, unspecified; E11.9 Type 2 diabetes mellitus without complications; Z87.891 Personal history of nicotine dependence; Z79.899 Other long term (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
CPT/HCPCS: 36415; 71045; 80053; 81001; 83690; 84484; 85025; 86850; 86900; 86901; 93005; 93010; 96361; 96374; 96375; 96376; 99285-25; C9113; J1170; J1790; J2405; J7121

== ENCOUNTER 2021-12-26 17:49 | Emergency (ER) | payer OTHER ==
[~2021-12-26] VITALS: Ht 182.9 cm; Wt 135.1 kg
[~2021-12-26 17:49] MED LIST changes: +PROMETHAZINE HC25 M1 PO
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
[2021-12-27] MEDS ORDERED: KETOROLAC TROME10 MG PO (01:11)
== END 2021-12-27 01:30 | disposition home or self-care (01) ==
LOC: ED 17:49
DX: M54.50 Low back pain, unspecified (principal); C41.9 Malignant neoplasm of bone and articular cartilage, unspecified; K21.9 Gastro-esophageal reflux disease without esophagitis; I10 Essential (primary) hypertension; J43.9 Emphysema, unspecified; E11.9 Type 2 diabetes mellitus without complications; Z87.891 Personal history of nicotine dependence; Z79.899 Other long term (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; Z79.84 Long term (current) use of oral hypoglycemic drugs
CPT/HCPCS: 36415; 71045; 80053; 81001; 83690; 83735; 85025; 87088; 96374; 96375; 96376; 99283-25; J1170; J1790; J1885; J2405; J7030

== ENCOUNTER 2022-01-02 07:39 | Day surgery (SDC) | payer OTHER ==
[~2022-01-02] VITALS: Ht 182.9 cm; Wt 135.0 kg
[~2022-01-02 07:39] MED LIST changes: +KETOROLAC TROME10 MG PO
[2022-01-02] MEDS ORDERED: MORPHINE SULFAT15 MG PO (08:01)
[2022-01-02] MEDS ORDERED: GABAPENTIN300 MG PO (08:01)
[2022-01-02] MEDS ORDERED: DOCUSATE CALCI240 MG PO (08:02)
--- NOTE | 2022-01-02 08:24 | NUR ---
0815-PATIENT IS HAVING BACK PAIN. RATES PAIN 12/14. TAKES ORAL PAIN MEDICATIONS BUT DIDNT TAKE MEDICATION THIS AM. VO PER HERMILA YIN FOR MORPHINE 1-10MG IV. PHARMACY NOTIFIED. 0819-PAIN MEDICATION GIVEN 08- RATSE PAIN 10/13 AND STILL DECREASING. O2 MONITOR ON.
--- NOTE | 2022-01-02 10:49 | NUR ---
01/02/22 Elmer9 May Colon 1042- PT ARRIVES TO PACU NONAROUSABLE TO NOXIOUS STIMULI WITH AN OPA IN PLACE. RESP EVEN. TACHYPNEIC WITH RESP AT 24. OXYGEN SAT HIGH 90'S ON 10L VIA MASK. 1046- CBG 150. TAKEN BY MARIAMA RANGEL RN.
--- NOTE | 2022-01-02 12:01 | NUR ---
1120-PATIENT BACK TO ROOM FROM PACU ON . RECEIVED REPORT FROM ABEL CHINCHILLA. PATIENT AWAKE. RATES PAIN 6/10. DENIES NAUSEA. NO DRAINAGE NOTED. FAMILY IN ROOM. PATIENT GIVEN WATER AND JELLO. CALL LIGHT WITHIN REACH.
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
--- NOTE | 2022-01-07 17:56 | OR ---
[facility] [address] [place], [place] [address] Signed DATE OF OPERATION: 01/02/2022 SURGEON: Hermila Ponce MD PREOPERATIVE DIAGNOSES: 1. Multiple hepatic lesions suggestive of metastatic disease; spinal pain likely related to metastatic disease, T9 and T11 vertebral bodies. 2. Mild dysphagia. POSTOPERATIVE DIAGNOSES: 1. Neoplasm of GE junction. 2. Small polyp of rectosigmoid.. PROCEDURE: 1. Esophagogastroduodenoscopy with biopsy. 2. Total colonoscopy to cecum with cold snare polypectomy x1. ANESTHESIA: General endotracheal; Hermila Bess CRNA INDICATIONS: This 51-year-old white man is a patient Dr. Moises Zambrano and is referred directly for consideration of upper endoscopy and colonoscopy on the basis of CT scan finding on December 24, 2021 showing multiple hepatic lesions and possible metastatic lesions to the anterior T9 and T11 vertebral bodies. The patient has had mild dysphagia and some heartburn. He has had weight loss from 360 pounds down to [address] scan does show lesions of the liver highly suggestive of metastatic disease. He has had no blood per rectum. He is admitted at this time to undergo upper endoscopy and colonoscopy to better define a probable source of metastatic disease to the spine and liver. The risks of bleeding, infection, perforation, and so forth were reviewed with him in detail. He understands and wished to proceed. FINDINGS: A GE junction tumor was identified on upper endoscopy. This was on the gastric side most dominantly, but also into the distal esophagus. Quite clearly, this is malignant neoplasm. The mid esophagus and more proximal esophagus were normal. Stomach otherwise was normal as was the duodenum. Electronically Signed By: HERMILA PONCE MD 01/07/22 1756 PATIENT NAME: HERMILA ZARATE OPERATIVE REPORT DATE OF : 70 REPORT #: [id number] PHYSICIAN: HERMILA PONCE MD PCP: MOISES ZAMBRANO MD REPORT IS CONFIDENTIAL AND NOT TO BE RELEASED WITHOUT AUTHORIZATION [facility] [address] [place], [place] [address] Signed Colonoscopy was performed showing a small sessile polyp distal sigmoid, which was excised with cold snare technique. There is no doubt that the metastatic disease is from GE junction tumor. DESCRIPTION OF PROCEDURE: The patient was brought to the surgical endoscopy suite and given a general endotracheal anesthetic based on the preference of the cold work operator related to previous anesthesia experiences. While in the supine position, a bite block was placed. An Olympus video upper endoscope was passed in the hypopharynx and easily passed in the esophagus. Esophagus throughout its course was normal except in the distal portion where there was a neoplastic change. The scope was easily passed into the stomach, which was insufflated with air. Rugal folds were normal. Antrum was normal as was the pylorus. The scope was passed through into the duodenum. The duodenum was normal. Biopsies were taken of the duodenal mucosa. The scope was withdrawn and biopsies taken of the antrum for both HANK and pathologic testing. Retroflexed view showed a bit of a hiatal hernia and with further withdrawal, an ulcerated neoplastic process on the gastric side of the GE junction. Multiple biopsies were taken there. The scope was withdrawn and the esophageal portion had neoplastic change as well, this too was biopsied. The scope was withdrawn to the mid esophagus where biopsies were taken of normal-appearing esophageal mucosa. The scope was removed. Leaving the patient in the supine position given intubation and other factors, colonoscopy was anticipated. Digital rectal examination was normal. An Olympus video colonoscope was passed in the rectum and manipulated throughout the colon ultimately intubating the cecum itself. The ileocecal valve and appendiceal orifice were normal. The scope was withdrawn and examination throughout showed no sign of abnormality until the distal sigmoid where a small sessile polyp was noted. This was excised with cold snare technique and specimen passed for pathology. Further withdrawal showed a normal rectum. The scope was removed and the patient taken to the recovery room in good condition. 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 Palliative approaches in this situation might include chemotherapy and radiation therapy. The process is incurable otherwise, however. I will advise Dr. Zambrano his primary physician of this diagnosis. We would recommend referral to Dr. Russo and Dr. Le for further consideration of palliative interventions. He likely would benefit from a feeding gastrostomy anticipating edema and so forth related to palliative therapy (if the patient wishes to pursue it). As the patient's part of the [facility], referral for these specialists will need to be Electronically Signed By: HERMILA PONCE MD 01/07/22 0434 PATIENT NAME: HERMILA ZARATE OPERATIVE REPORT DATE OF : 70 REPORT #: [id number] PHYSICIAN: HERMILA PONCE MD PCP: MOISES ZAMBRANO MD REPORT IS CONFIDENTIAL AND NOT TO BE RELEASED WITHOUT AUTHORIZATION [address] [address] Signed under the auspices of his primary managing physician, Dr. Zambrano. MD TAMEKA Roman/EVANGELINAL /[id number] cc: MD Rodger Willis, MD Julián Le MD, PH.D. Copies: MOISES ZAMBRANO MD, ROBERT C MD CHOE, JUNO ~ Electronically Signed By: HERMILA PONCE MD 01/07/22 1756 PATIENT NAME: HERMILA ZARATE OPERATIVE REPORT DATE OF : 70 REPORT #: [id number] PHYSICIAN: HERMILA PONCE MD PCP: MOISES ZAMBRANO MD REPORT IS CONFIDENTIAL AND NOT TO BE RELEASED WITHOUT AUTHORIZATION
--- NOTE | 2022-01-24 12:36 | PATH ---
[facility] [address] [facility] [place], [place] [address] Signed THIS IS AN ADDENDUM REPORT SPECIMEN(S): A DUODENAL BIOPSY SPECIMEN(S): B ANTRUM/PYLORUS BIOPSY SPECIMEN(S): C PROXIMAL STOMACH BIOPSY SPECIMEN(S): D DISTAL ESOPHAGEAL BIOPSY SPECIMEN(S): E MID ESOPHAGEAL BIOPSY SPECIMEN(S): F SIGMOID POLYP SPECIMEN SOURCE: A. DUODENAL BIOPSY B. ANTRUM/PYLORUS BIOPSY C. PROXIMAL STOMACH BIOPSY D. DISTAL ESOPHAGEAL BIOPSY E. MID ESOPHAGEAL BIOPSY F. SIGMOID POLYP CLINICAL HISTORY: Liver nodules; liver disease, unspecified. Postop diagnosis: GE junction tumor, polyp x 1. FINAL PATHOLOGIC DIAGNOSIS: A. Duodenal biopsy: - Benign duodenal mucosa, negative for specific diagnostic abnormality. B. Antrum/pylorus biopsy: - Benign polypoid fundic-type mucosa with slight chronic inflammation. - Negative for evidence of Helicobacter organisms on routine HE-stained sections. C. Proximal stomach biopsy: - Intestinal metaplasia with high-grade dysplasia, suspicious for tumor invasion. D. Distal esophageal biopsy: - Gastroesophageal junction with invasive adenocarcinoma, moderately differentiated. E. Mid esophageal biopsy: - Benign esophageal mucosa, negative for increased epithelial eosinophils. - Negative for glandular mucosa. F. Sigmoid polyp: - Hyperplastic polyp (one fragment). COMMENT: PATIENT NAME: HERMILA ANSARI PATHOLOGY DATE OF : 70 REPORT #: [id number] PHYSICIAN: [facility] PCP: SANJEEV WEAVER MD REPORT IS CONFIDENTIAL AND NOT TO BE RELEASED WITHOUT AUTHORIZATION [facility] [address] [place], [place] [address] Signed Microsatellite instability testing is pending on the distal esophageal biopsy (specimen D) and will be reported in an addendum. Diagnostic notification to the office of Dr. Crowe is initiated by Dr. Farmer and will be recorded separately. As part of [facility]' Quality Improvement Program, this case was reviewed by another member of our pathology staff. JVR:DS:em:C1NR MICROSCOPIC EXAMINATION: Histologic sections of all submitted blocks are examined by light microscopy. These findings, together with the gross examination, support the pathologic diagnosis. GROSS DESCRIPTION: Six specimens are received in six containers, labeled "JW." A. The specimen, labeled "JW, per the requisition, duodenal biopsy," is received in formalin and consists of two schwarz soft tissue fragments that measure 0.2 cm in greatest dimension. The specimen is entirely submitted in cassette (A1). B. The specimen, labeled "JW, per the requisition, antrum/pylorus biopsy," is received in formalin and consists of one schwarz soft tissue fragment that measures 0.3 cm in greatest dimension. The specimen is entirely submitted in cassette (B1). C. The specimen, labeled "JW, per the requisition, proximal stomach biopsy," is received in formalin and consists of four schwarz soft tissue fragments that measure 0.2 cm in greatest dimension. The specimen is entirely submitted in cassette (C1). D. The specimen, labeled "JW, per the requisition, distal esophageal biopsy," is received in formalin and consists of seven schwarz soft tissue fragments that measure 0.3 cm in greatest dimension. The specimen is entirely submitted in cassette (D1). E. The specimen, labeled "JW, per the requisition, mid esophageal biopsy," is received in formalin and consists of three schwarz soft tissue fragments that measure 0.3 cm in greatest dimension. The specimen is entirely submitted in cassette (E1). F. The specimen, labeled "JW, per the requisition, sigmoid polyp," is received in formalin and consists of one schwarz soft tissue fragment that measures 0.2 cm in greatest dimension. The specimen is entirely submitted in cassette (F1). CA (under the direct supervision of a pathologist) The Gross Description was prepared using a voice recognition system. The report PATIENT NAME: HERMILA ANSARI PATHOLOGY DATE OF : 70 REPORT #: [id number] PHYSICIAN: DELGADO ARROYO PCP: SANJEEV WEAVER MD REPORT IS CONFIDENTIAL AND NOT TO BE RELEASED WITHOUT AUTHORIZATION [facility] [address] [place], [place] [address] Signed was reviewed for accuracy; however, sound-alike word errors, addition and/or deletions may occur. If there is any question about this report, please contact Client Services. PERFORMING LABORATORY: The technical component was performed by [facility], [address] [place] [id number] (CLIA# [id number]). Professional interpretation was performed by [facility], [address] [place], [place] [address]., [place] [address] (CLIA#: [id number]). COMMENT: Tumor cells show no loss of nuclear expression of MMR proteins. This correlates with a low probability of microsatellite instability. However, if there is a high clinical suspicion for Mcgee syndrome (hereditary non-polyposis colorectal carcinoma syndrome) in this patient, additional testing should be considered. Please contact [facility] if such testing is indicated. DANIKA:ruby ADDITIONAL NOTES: Immunohistochemical and/or in situ hybridization studies were performed on this case with the appropriate positive controls that react as expected. This test was developed and its performance characteristics determined by [facility]. It has not been cleared or approved by the U.S. Food and Drug Administration. The FDA has determined that such clearance or approval is not necessary. This test is used for clinical purposes. It should not be regarded as investigational or for research. [facility] is certified under the Clinical Laboratory Improvement Amendments of 1988 (CLIA) as qualified to perform high complexity clinical laboratory testing. Professional interpretation was performed by [facility] [address] [address] (CLIA#: [id number]). REASON FOR ADDENDUM: To report the results of microsatellite instability testing on the distal esophageal biopsy: ADDENDUM PATHOLOGIC DIAGNOSIS: D. Distal esophageal biopsy, adenocarcinoma, microsatellite instability testing by IHC: - MLH1: Intact nuclear expression. - MSH2: Intact nuclear expression. PATIENT NAME: HERMILA ANSARI PATHOLOGY DATE OF : [birth year] REPORT #: [id number] PHYSICIAN: DELGADO ARROYO PCP: SANJEEV WEAVER MD REPORT IS CONFIDENTIAL AND NOT TO BE RELEASED WITHOUT AUTHORIZATION [address] [address] Signed - MSH6: Intact nuclear expression. - PMS2: Intact nuclear expression. INTERPRETATION: Normal pattern. ADDENDUM MICROSCOPIC EXAMINATION: A panel of four antibodies is selected which will detect 95% of microsatellite unstable carcinomas. Testing is performed at the request of Dr. Farmer. Block: D1. Recut HE slide is prepared from the block. The presence of neoplastic glands and non-neoplastic internal control glands or stroma is confirmed. Internal control cells for MLH1, MSH2, PMS2 and MSH6 are positive. Neoplastic gland cells show the following: - MLH1: Positive. - MSH2: Positive. - MSH6: Positive. - PMS2: Positive. [facility] [place] [facility] [place] REASON FOR ADDENDUM: To document review of material for external testing. ADDENDUM COMMENT: At the request of Dr. Rodger Russo, archived slides and blocks for case [id number] are retrieved on Hermila Ansari and reviewed by a pathologist to assess adequacy for NeoTYPE Esophageal Tumor Profile testing. Block D1 is sent to [facility]. ANA:mable Professional interpretation was performed by [facility], [address] [place] [address] (CLIA# [id number]). REASON FOR ADDENDUM: To report results of additional testing. Distal esophageal biopsy, multiple marker panel: Comments: PLEASE NOTE: At the current time, FDA guidelines recommend programmed cell 1 ligand 1 (PD-L1) testing in NSCLC [PD-L1 22C3, PD-L1 28.8, PD-L1 SP142 and PD-L1 SP263], esophageal squamous cell carcinoma [PD-L1 22C3], cervical squamous cell carcinoma [PD-L1 22C3], head and neck squamous cell carcinoma [PD-L1 22C3 and PD-L1 28.8], urothelial PATIENT NAME: HERMILA ANSARI PATHOLOGY DATE OF : 70 REPORT #: [id number] PHYSICIAN: DELGADO PATHOLOGY PCP: SANJEEV WEAVER MD REPORT IS CONFIDENTIAL AND NOT TO BE RELEASED WITHOUT AUTHORIZATION [facility] [address] [place], [place] [address] Signed carcinoma [PD-L1 28-8, and PD-L1 SP142] and triple_negative breast cancer (TNBC) [PD-L1 22C3]. The FDA no longer recommends testing for PD-L1 28-8 in melanoma (August 2018), PD-L1 SP142 in TNBC (November 2020), PD-L1 SP263 or PD-L1 22C3 in urothelial carcinoma (January 2021), and PD-L1 22C3 in Gastric/GEA (June 2021) for determination of pembrolizumab, nivolumab, atezolizumab, or durvalumab therapy. While the overexpression of PD-L1 has been observed in other carcinomas (including thymus, colon, pancreas, ovary, endometrium, and kidney), hematolymphoid neoplasms (Hodgkin lymphoma, DLBCL, cutaneous T cell lymphoma, and acute leukemias) and glioblastoma, the predictive value of PD-L1 immunohistochemistry for tumor therapy decisions, in these tumors, is not established and no reliable scoring criteria exist. Various proposed criteria utilize percent of tumor cells (TC), percent of inflammatory cells (IC) and a combination of the TC and IC (total/ combined positive score; CPS). Therefore, the utility of PD-L1 expression in predicting the response to any medication, including IMFINZI(r) (durvalumab), KEYTRUDA(r) (pembrolizumab), OPDIVO(r) (nivolumab) and TECENTRIQ(r) (atezolizumab), in tumors other than NSCLC, esophageal squamous cell carcinoma, cervical squamous cell carcinoma, head, and neck squamous cell carcinoma, triple-negative breast cancer (TNBC), and urothelial carcinoma, should be utilized in the context of these limitations and should not be used as the sole factor in determining treatment. If clinically indicated, the appropriate tests to evaluate for immune checkpoint inhibitors therapy (e.g. Keytruda, Opdivo, etc) in patients with unresectable or metastatic solid tumors (other than the ones mentioned above), are mismatch repair (MMR) or microsatellite instability (MSI) studies. Results PD-L1 22C3 FDA (KEYTRUDA(r)) for ESCC (Esophageal Squamous Cell Carcinoma): PD-L1 EXPRESSION Combined Positive Score: 10 Intended Use: Stains were scored by a pathologist using manual microscopy. All controls were reviewed and showed appropriate positive and negative immunoreactivity. Velazquez-TRK: PATIENT NAME: HERMILA ANSARI PATHOLOGY DATE OF : [birth year] REPORT #: [id number] PHYSICIAN: DELGADO PATHOLOGY PCP: SANJEEV WEAVER MD REPORT IS CONFIDENTIAL AND NOT TO BE RELEASED WITHOUT AUTHORIZATION [facility] [address] [place], [place] [address] Signed NTRK gene fusions have been reported in >20 tumor types. They occur in >90% of certain rare tumors and are considered essentially pathogenic in secretory breast cancer, congenital fibrosarcoma, congenital mesoblastic nephroma, and mammary analogue secretory carcinoma (MASC). Tumors with intermediate NTRK fusion frequencies (5-25%) include papillary thyroid cancer (PTC), GIST without KIT/PDGFRA/EVERETT mutations, spitzoid neoplasms, and certain pediatric gliomas. NTRK fusions are detected in <5% of a wide range of common tumors including non-small cell lung cancer (NSCLC, 1%); pancreatic adenocarcinoma; head and neck squamous cell; breast, colorectal, and renal cell carcinoma; melanoma; and adult brain tumors such as astrocytoma and glioblastoma. Testing for NTRK fusions identifies patients who may be candidates for NTRK inhibitor therapy. Correlation of IHC staining with molecular detection of TRK fusions is moderate; discrepant cases have been described. IHC screening is not recommended in neuroendocrine tumors, GISTs, and gliomas, as these tissues show positive staining in the absence of an NTRK translocation. If Velazquez-TRK is expressed or equivocal by immunohistochemistry, then confirmatory molecular testing that detects NTRK1, -2, and -3 fusions is recommended. PD-L1 22C3 FDA (KEYTRUDA(r)) for ESCC (Esophageal Squamous Cell Carcinoma): PD-L1 IHC 22C3 pharmDx is a qualitative immunohistochemical assay using monoclonal mouse Anti-PD-L1, clone 22C3 intended for use in the detection of PD-L1 protein in formalin-fixed, paraffin-embedded (FFPE) squamous cell carcinoma tissue using EnVision FLEX visualization system on Autostainer Link 48. PD-L1 IHC 22C3 pharmDx is indicated as an aid in identifying patients with esophageal squamous cell carcinoma whose tumors express PD-L1. KEYTRUDA(r) (pembrolizumab) is indicated for the treatment of patients with locally advanced or metastatic squamous cell carcinoma who are not eligible for cisplatin-containing chemotherapy and whose tumors express PD-L1 [Combined Positive Score (CPS) >=10] as determined by an FDA-approved test. The performance characteristics of this assay have not been validated for decalcified specimens. Results should be interpreted with caution given the likelihood of false negativity on decalcified specimens. Antigenicity of cut tissue sections may diminish over time and may be compromised after 1 months when stored at 25 degC or 4.5 months when stored at 2-8 degC. See PDL1, 22C3 pharmDx kit (package PATIENT NAME: HERMILA ANSARI PATHOLOGY DATE OF : [birth year] REPORT #: [id number] PHYSICIAN: DELGADO PATHOLOGY PCP: SANJEEV WEAVER MD REPORT IS CONFIDENTIAL AND NOT TO BE RELEASED WITHOUT AUTHORIZATION [facility] [address] [place] [address] Signed insert) product label for additional information. Use of this test in an off-label manner invalidates the FDA approval for the test. Methodology: Velazquez-TRK: Porum clone [id number] was used to detect Velazquez-TRK in formalin fixed paraffin embedded tissue sections. A multimer technology based system was used for detection. The antibody is directed against the C-terminal region of TRK (tropomyosin receptor kinase) A, B, and C proteins, which are encoded by NTRK1, NTRK2, and NTRK3 genes respectively. PD-L1 22C3 FDA (KEYTRUDA(r)) for ESCC (Esophageal Squamous Cell Carcinoma): PD-L1 staining was performed utilizing the DAKO FDA-approved PD-L1, 22C3 pharmDx protocol using the Dako Automated Link 48 platform. However, instead of using the indicated same tumor control as stated in the Instruction for Use, an alternative positive/negative control was used to demonstrate appropriate staining. Following incubation with the primary monoclonal antibody to PD-L1, specimens were incubated with a Linker antibody specific to the host species of the primary antibody, and then were incubated with a txqlf-io-skl visualization reagent consisting of secondary antibody molecules and horseradish peroxidase molecules coupled to a dextran polymer backbone. PD-L1 protein expression is determined by using Combined Positive Score (CPS), which is the number of PD-L1 staining cells divided by the total number of viable tumor cells and then multiplied by 100. PD-L1 staining cells is defined as: tumor cells showing partial or complete membrane staining at any intensity plus PD-L1 staining in tumor infiltrating or tumor adjacent mononuclear inflammatory cells (lymphocytes and macrophages) with membrane and/or cytoplasmic staining at any intensity. Although the result of the calculation may exceed 100, the maximum score is defined as CPS 100. The specimen should be considered to have PD-L1 expression if CPS >/=10 and no PD-L1 expression if CPS <10. Stain CPT Code Quantity Velazquez-TRK 27319 1 PD-L1 22C3 FDA (KEYTRUDA(r)) for ESCC (Esophageal Squamous Cell Carcinoma) 31052 1 The Accessioning Component, Technical Component Processing and Analysis of this test was completed at [facility] [address], [place] / [address] / [phone] / CLIA #[id number] / [employer] Fitter(s): Adarsh Preciado M.D. The Professional PATIENT NAME: HERMILA ANSARI PATHOLOGY DATE OF : [birth year] REPORT #: [id number] PHYSICIAN: DELGADO ARROYO PCP: SANJEEV WEAVER MD REPORT IS CONFIDENTIAL AND NOT TO BE RELEASED WITHOUT AUTHORIZATION [address] [address] Signed Component of this test was completed at [facility] , [address] [facility] [place] / [address] / [phone] / CLIA #[id number] / [employer] Fitter(s): Sabrina Flanagan MD. (Accession/CaseNo: [id number]) The performance characteristics of the IHC/KEV assays have been validated on formalin-fixed paraffin embedded tissues only. The performance characteristics of this test have been determined by the performing laboratory. The test has not been cleared or approved by the U.S. Food and Drug Administration ("FDA"), as the FDA has determined such clearance or approval is not necessary. This test is used for clinical purposes. It should not be regarded as investigational or for research. This laboratory is certified under the Clinical Laboratory Improvement Amendments of 1988 ("CLIA") as qualified to perform high complexity clinical laboratory testing. For the classification of IHC antibodies, please contact the Client Services team. Images that may be included within this report are underwriting service representative of the patient but not all testing in its entirety and should not be used to render a result. The CPT codes provided with our test descriptions are based on AMA guidelines and are for informational purposes only. Correct CPT coding is the sole responsibility of the billing democrat. Please direct any questions regarding coding to the payer being billed. To add results of additional testing. Distal esophageal biopsy, NeoTYPE Esophageal Tumor Panel FISH analysis: Results: See Below Interpretation: MET amplification: Not Detected PTEN Deletion: Not Detected (See Below) MET(7q31) signals per nucleus: 2.5 CEN7 signals per nucleus: 2.6 MET/CEN7 signal ratio: 1.0 Polysomy signal patterns were seen in the PTEN probe set: >2R>/=2G, 82.0%, normal <21.8%. 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 The clinical significance of this finding is uncertain. Correlation with other clinical and laboratory findings is indicated. The MET probe set was within the normal reference range. PATIENT NAME: HERMILA ANSARI PATHOLOGY DATE OF : [birth year] REPORT #: [id number] PHYSICIAN: DELGADO PATHOLOGY PCP: SANJEEV WEAVER MD REPORT IS CONFIDENTIAL AND NOT TO BE RELEASED WITHOUT AUTHORIZATION [facility] [address] [place], [place] [address] Signed Methodology: An HE-stained slide was reviewed by a pathologist to identify the target area(s) containing invasive tumor. FISH analysis of at least 50 interphase nuclei was performed within the marked target area(s) using dual-probe FISH assays for MET (7q31) and PTEN (10q23). Two or more independent areas containing invasive tumor were analyzed. Controls performed appropriately. References: 1. Dali Dodge, Hannah L. MET deregulation in breast cancer. Vanessa Transl Med. 2015;3(13):181. 2. Ha E, Vickie W, Vickie C, Vande Fern G. Targeting MET in cancer: rationale and progress. Emma Rev Cancer. 2012;12(2):89-103. 3. Sandro P, Leanne Navarro, et al. Partial PTEN deletion is linked to poor prognosis in breast cancer. BMC Cancer. 2015;15:963. Reference Ranges: MET: A sample is considered positive if one of the following criteria are met: 1) High Amplified - MET (7q31) to CEN7 signal ratio is >=5.0, 2) Intermediate Amplified - MET (7q31) to CEN7 signal ratio is >2.2 to <5.0, or 3) Low Amplified - MET (7q31) to CEN7 signal ratio is >=1.8 to <=2.2. If results are below these cutoffs, then the sample is considered negative. PTEN (10q23): A sample is considered positive for PTEN gene deletion if >=14.0% of cells show loss of PTEN alone (1R2G), OR >=9.0% show homozygous loss of PTEN (0R2G), OR >=26.6% show monosomy 10 (1R1G). If results are below these cutoffs, then the sample is considered negative. Probe Set Detail: MET: nuc kev(CEN7x2.6,METx2.5)[50] PTEN (10q23): nuc kev(GPO34i3>2,PTENx3>3)[41/50] Comments: The results of this assay have been determined within the limitations described and should not be used interchangeably with resulting values from other methods or kits. These results are intended to be used as an adjunct to other concurrent testing in patient care management. Therefore, the presence or absence of a malignant disease cannot be determined based solely on these results. Clinical correlation is advised. Nuclei Scored: 50 Probe set: MET, PTEN (10q23) Scoring method: Computer Assisted Technology PATIENT NAME: HERMILA ANSARI PATHOLOGY DATE OF : [birth year] REPORT #: [id number] PHYSICIAN: DELGADO PATHOLOGY PCP: SANJEEV WEAVER MD REPORT IS CONFIDENTIAL AND NOT TO BE RELEASED WITHOUT AUTHORIZATION [address] [address] Signed CPT Code: 35196 # of Units: 2 All controls were within expected ranges. The Accessioning Component and Technical Component Processing of this test was completed at [facility] [address] / [address] / [phone] / CLIA #[id number] / [employer] Fitter(s): Adarsh Preciado M.D. The Technical Component Analysis of this test was completed at [facility] [place], [address] [place] [address] / [address] / [phone] / CLIA # [id number] / [employer] Fitter(s): Oliver Thakur M.D. The Professional Component of this test was completed at [facility] [place], [address] [place] [address] / [address] / [phone] / CLIA #[id number] / [employer] Fitter(s): Darby Burger MD. Accession / CaseNo: [id number] / [id number] [email or web address] FISH test uses either FDA cleared and/or analyte specific reagent (ASR) probes. This test was developed and its performance characteristics determined by [email or web address] in [place], [place]. It has not been cleared or approved by the U.S. Food and Drug Administration (FDA). The FDA has determined that such clearance or approval is not necessary. This test is used for clinical purposes and should not be regarded as investigational or for research. This laboratory is regulated under CLIA '88 as qualified to perform high complexity testing. Interphase FISH does not include examination of the entire chromosomal complement. Clinically significant anomalies detectable by routine banded cytogenetic analysis may still be present. Consider reflex banded cytogenetic analysis. Images that may be included within this report are underwriting service representative of the patient but not all testing in its entirety and should not be used to render a result. The CPT codes provided with our test descriptions are based on AMA guidelines and are for informational purposes only. Correct CPT coding is the sole responsibility of the billing democrat. Please direct any questions regarding coding to the payer being billed. To report results of additional testing. D. Distal esophagus, HER2 gastric/GEA: EQUIVOCAL (Score 2+) Tissue Fixative: PATIENT NAME: HERMILA ANSARI PATHOLOGY DATE OF : [birth year] REPORT #: [id number] PHYSICIAN: DELGADO PATHOLOGY PCP: SANJEEV WEAVER MD REPORT IS CONFIDENTIAL AND NOT TO BE RELEASED WITHOUT AUTHORIZATION [facility] [address] [place], [place] [address] Signed Specimens for breast or gastroesophageal prognostic staining should be submitted following ASCO/CAP guidelines: Incisional and excisional biopsy samples should have a cold ischemia time of no longer than 1 hour and be fixed in 10% neutral buffered formalin for intervals ranging from at least 6 hours to no more than 72 hours when testing for ER/OK and HER2; cytology specimens must be fixed in formalin. The fixative, fixation time and/or cold ischemic time were not provided. A negative result can potentially be a false negative due to the possibility of prolonged cold ischemic time, inadequate fixative and/or fixation time. Results should be interpreted with caution. For negative HER2 results, consideration should be given to performing HER2 analysis by in-situ hybridization. Intended Use: Stains were scored by a pathologist using manual microscopy. All controls were reviewed and showed appropriate positive and negative immunoreactivity. HER2 Gastric/GEA: HER2, a member of the epidermal growth factor receptor family, is a transmembrane protein with tyrosine kinase activity. Gene amplification and protein overexpression of HER2 have been found in a variety of tumors, including gastroesophageal carcinoma. The HER2 protein is expressed at a level detectable by immunohistochemistry in up to 20 percent of adenocarcinomas from various sites. The immunohistochemical detection of the HER2 protein overexpression is also used as an aid in determination of patients for whom anti-HER2 therapy is indicated. Patients who are positive for HER2 overexpression (score 3+) are considered eligible for HER2-targeted therapies. Correlation with HER2 FISH/KEV findings is recommended for equivocal (2+) results. The performance characteristics of these assays have not been validated on decalcified specimens. Results should be interpreted with caution given the likelihood of false negativity on decalcified specimens. Antigenicity of cut tissue sections may diminish over time and is compromised within 3 months after cutting from the paraffin block. Methodology: HER2 Gastric/GEA: HER2 staining was performed utilizing the FDA approved Porum Pathway anti-HER-2/cristino antibody (clone [id number]) staining procedure of FFPE specimens using the Porum Benchmark Ultra. However, instead of using PATIENT NAME: HERMILA ANSARI PATHOLOGY DATE OF : 70 REPORT #: [id number] PHYSICIAN: DELGADO ARROYO PCP: SANJEEV WEAVER MD REPORT IS CONFIDENTIAL AND NOT TO BE RELEASED WITHOUT AUTHORIZATION [address] [address] Signed the indicated rabbit polyclonal negative reagent control stated in the Instruction for Use, a rabbit monoclonal negative reagent control was used to detect nonspecific staining. Although this minor reagent control substitution is inconsistent with the FDA approval for Porum Pathway HER2, the test remains consistent with applicable CAP and CLIA LDT guidelines. Scoring is performed using the 2016 CAP/ASCP/ASCO consensus guidelines for HER2 evaluation in gastroesophageal adenocarcinoma (3). Known artifacts such as edge artifact, tissue retraction and tissue crush may give the false impression of over expression. Care should be taken to avoid assessing these areas. References: 1. Jean Carlos CHAIREZ, et al; ToGA Trial Investigators. Trastuzumab in combination with chemotherapy versus chemotherapy alone for treatment of HER2-positive advanced gastric or gastro-esophageal junction cancer (ToGA): a phase 3, open-label, randomized controlled trial. Lancet. 2010;376(6669):652-97. 2. Lei M, et al. Assessment of a HER2 scoring system for gastric cancer: results from a validation study. Histopathology. 2008; 52:797-805. 3. KATHRYN Taylor, Poli MK, Darvin CB et al. HER2 Testing and Clinical Decision Making in Gastroesophageal Adenocarcinoma: Guideline From the College of [place] Pathologists, [place] Society for Clinical Pathology, and [place] Society of Clinical Oncology. Arch Pathol Lab Med. 2016 Dec; 140(12):7576-3285. 4. Austin F, Chun AM, Dulce MENSAH, et al. Advances in HER2-Targeted Therapy: Novel Agents and Opportunities Beyond Breast and Gastric Cancer. Clin Cancer Res. 2019;25(7):9870-8713. PMID: [id number]. Stain CPT Code Quantity HER2 Gastric/GEA 75669 1 The Accessioning Component, Technical Component Processing, Analysis and Professional Component of this test was completed at [facility] [address] / [address] / [phone] / CLIA #[id number] / Formstone Fitter(s): Adarsh Preciado M.D. (Accession/CaseNo: [id number]) The performance characteristics of the IHC/KEV assays have been validated on formalin-fixed paraffin embedded tissues only. The performance characteristics of this test have been determined by the PATIENT NAME: HERMILA ANSARI PATHOLOGY DATE OF : 70 REPORT #: [id number] PHYSICIAN: DELGADO ARROYO PCP: SANJEEV WEAVER MD REPORT IS CONFIDENTIAL AND NOT TO BE RELEASED WITHOUT AUTHORIZATION [facility] [address], [place] [address] Signed performing laboratory. The test has not been cleared or approved by the U.S. Food and Drug Administration ("FDA"), as the FDA has determined such clearance or approval is not necessary. This test is used for clinical purposes. It should not be regarded as investigational or for research. This laboratory is certified under the Clinical Laboratory Improvement Amendments of 1988 ("CLIA") as qualified to perform high complexity clinical laboratory testing. For the classification of IHC antibodies, please contact the Client Services team. Images that may be included within this report are underwriting service representative of the patient but not all testing in its entirety and should not be used to render a result. The CPT codes provided with our test descriptions are based on AMA guidelines and are for informational purposes only. Correct CPT coding is the sole responsibility of the billing democrat. Please direct any questions regarding coding to the payer being billed. To report results of additional testing. D. Distal esophageal biopsy, NeoTYPE esophageal profile analysis: Results Summary SNVs/Indels: KRAS G12V; TP53 D281N Alterations Detected by FISH: NONE detected Immuno-Oncology Biomarkers: Microsatellite Instability: MSI - Stable (CANDACE); PD-L1 22C3: PD-L1 EXPRESSION; Tumor Mutation Plato: Intermediate Additional Studies: Velazquez-TRK: Not Expressed Pertinent Negatives: NO alterations detected in the following genes: BRCA1, BRCA2 Interpretation - The expression of PD-L1 suggests response to immunotherapy with anti-PD-1 or anti-PD-L1, which are FDA-approved for diverse solid tumor types. The Accessioning Component, Technical Component Processing, Analysis and Professional Component of this test was completed at [facility] [place], [address] [place] [address], [place] / [address] / [phone] / CLIA #[id number] / Formstone Fitter(s): Adarsh Preciado M.D. (Accession/CaseNo: [id number]) The performance characteristics of this test have been determined by the performing laboratory. This test has not been approved by the FDA. The FDA has determined such clearance or approval is not PATIENT NAME: HERMILA ANSARI PATHOLOGY DATE OF : 70 REPORT #: [id number] PHYSICIAN: DELGADO ARROYO PCP: SANJEEV WEAVER MD REPORT IS CONFIDENTIAL AND NOT TO BE RELEASED WITHOUT AUTHORIZATION [facility] [address], [place] [address] Signed necessary. This laboratory is CLIA certified to perform high complexity clinical testing. Images that may be included within this report are underwriting service representative of the patient but not all testing in its entirety and should not be used to render a result. Diagnostician: Gary Glasgow MD Pathologist Diagnostician: Mina Harper MD Pathologist Diagnostician: Adeel Farmer MD Pathologist Electronically Signed 01/24/2022 Copies: ~ PATIENT NAME: HERMILA ANSARI PATHOLOGY DATE OF : 70 REPORT #: [id number] PHYSICIAN: DELGADO PATHOLOGY PCP: SANJEEV WEAVER MD REPORT IS CONFIDENTIAL AND NOT TO BE RELEASED WITHOUT AUTHORIZATION
== END 2022-01-02 12:20 | disposition home or self-care (01) ==
LOC: OPS 07:39 → DS 07:39 → OPS 09:35 → DS 09:45 → OPS 12:20
PROVIDERS: ATTEND Surgery
PROC: 0DB48ZZ Excision of Esophagogastric Junction, Via Natural or Artificial Opening Endoscopic (ICD-10-PCS; principal; 2022-01-02 09:35)
PROC: 0DBE8ZZ Excision of Large Intestine, Via Natural or Artificial Opening Endoscopic (ICD-10-PCS; 2022-01-02 09:35)
DX: C16.0 Malignant neoplasm of cardia (principal); K63.5 Polyp of colon; K31.89 Other diseases of stomach and duodenum; K29.50 Unspecified chronic gastritis without bleeding; K76.9 Liver disease, unspecified; M54.6 Pain in thoracic spine; K44.9 Diaphragmatic hernia without obstruction or gangrene; E11.9 Type 2 diabetes mellitus without complications; K21.9 Gastro-esophageal reflux disease without esophagitis; I10 Essential (primary) hypertension; Z87.891 Personal history of nicotine dependence; Z96.652 Presence of left artificial knee joint
CPT/HCPCS: 00731; 88305; 88341; 88342; 88360; J0330; J0690; J1100; J2270; J2405; J2704; J2765; J7121

== ENCOUNTER 2022-03-25 22:09 | Emergency (ER) | payer OTHER ==
[~2022-03-25] VITALS: Ht 182.9 cm; Wt 105.5 kg
[~2022-03-25 22:09] MED LIST changes: +ACETAMINOPHEN500 MG PO; +COMPRO25 MG PR; +DOCUSATE CALCI240 MG PO; +GABAPENTIN300 MG PO; +IBUPROFEN600 MG PO; +LEVOFLOXACIN500 MG PO; +MORPHINE SULFAT15 M1 PO; +MORPHINE SULFAT15 MG PO; +MORPHINE SULFAT30 M2 PO; +OXYCODON-ACETA1 EAC2 PO; +PROCHLORPERAZIN10 MG PO; +ZOLOFT100 MG PO
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
--- NOTE | 2022-03-28 18:23 | EKG ---
[facility] [address] [place] [address] Signed Normal sinus rhythm Normal ECG When compared with ECG of 20-MAR-2022 14:24, No significant change was found Confirmed by Hayden Escobar MD () on 03/28/2022 6:22:53 PM Electronically Signed By: HAYDEN ESCOBAR MD 03/28/221822 PATIENT NAME: HERMILA ZARATE Electrocardiogram DATE OF : 70 PHYSICIAN: HAYDEN ESCOBAR MD REPORT #: [id number] REPORT IS CONFIDENTIAL AND NOT TO BE RELEASED WITHOUT AUTHORIZATION
== END 2022-03-26 03:34 | disposition home or self-care (01) ==
LOC: ED 22:09
DX: D64.9 Anemia, unspecified (principal); K21.9 Gastro-esophageal reflux disease without esophagitis; I10 Essential (primary) hypertension; J43.9 Emphysema, unspecified; E11.9 Type 2 diabetes mellitus without complications; Z87.891 Personal history of nicotine dependence; Z88.8 Allergy status to other drugs, medicaments and biological substances; Z79.899 Other long term (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; Z79.84 Long term (current) use of oral hypoglycemic drugs
CPT/HCPCS: 36415; 36430; 71045; 80053; 85025; 85060; 86850; 86900; 86901; 86922; 93005; 93010; 96374; 99284-25; J1885; P9016

== ENCOUNTER 2022-04-03 08:54 | Emergency (ER) | payer OTHER ==
[~2022-04-03] VITALS: Ht 182.9 cm; Wt 105.8 kg
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
== END 2022-04-03 12:09 | disposition home or self-care (01) ==
LOC: ED 08:54
DX: R10.10 Upper abdominal pain, unspecified (principal); G89.29 Other chronic pain; C15.9 Malignant neoplasm of esophagus, unspecified; C78.7 Secondary malignant neoplasm of liver and intrahepatic bile duct; I10 Essential (primary) hypertension; J43.9 Emphysema, unspecified; K21.9 Gastro-esophageal reflux disease without esophagitis; E11.9 Type 2 diabetes mellitus without complications; Z87.891 Personal history of nicotine dependence; Z88.8 Allergy status to other drugs, medicaments and biological substances; Z91.012 Allergy to eggs; Z79.899 Other long term (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; Z79.84 Long term (current) use of oral hypoglycemic drugs
CPT/HCPCS: 36415; 80053; 81003; 83690; 85025; 85060; 96374; 96375; 96376; 99284-25; J1170; J1885; J2405

== ENCOUNTER 2022-04-15 21:52 | Emergency (ER) | payer OTHER ==
[~2022-04-15] VITALS: Ht 182.9 cm; Wt 106.1 kg
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
[2022-04-16] MEDS ORDERED: DILAUDID2 MG PO (00:58)
[2022-04-16] MEDS ORDERED: LASIX20 MG PO (01:02)
== END 2022-04-16 02:03 | disposition home or self-care (01) ==
LOC: ED 21:52
DX: C15.9 Malignant neoplasm of esophagus, unspecified (principal); J91.0 Malignant pleural effusion; Z20.822 Contact with and (suspected) exposure to COVID-19; C79.9 Secondary malignant neoplasm of unspecified site; K21.9 Gastro-esophageal reflux disease without esophagitis; I10 Essential (primary) hypertension; J43.9 Emphysema, unspecified; E11.9 Type 2 diabetes mellitus without complications; Z87.891 Personal history of nicotine dependence
CPT/HCPCS: 36415; 71045; 74177; 80053; 81003; 85025; 85060; 87502; 96375; 99285-25; J1170; J1940; Q9967; U0003

== ENCOUNTER 2022-04-20 19:44 | Emergency (ER) | payer OTHER ==
[~2022-04-20] VITALS: Ht 182.9 cm; Wt 106.2 kg
[~2022-04-20 19:44] MED LIST changes: +LASIX20 MG PO
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
== END 2022-04-20 22:51 | disposition home or self-care (01) ==
LOC: ED 19:44
DX: C15.9 Malignant neoplasm of esophagus, unspecified (principal); C78.7 Secondary malignant neoplasm of liver and intrahepatic bile duct; E86.0 Dehydration; R10.9 Unspecified abdominal pain; I10 Essential (primary) hypertension; K21.9 Gastro-esophageal reflux disease without esophagitis; J43.9 Emphysema, unspecified; E11.9 Type 2 diabetes mellitus without complications; Z87.891 Personal history of nicotine dependence; Z88.8 Allergy status to other drugs, medicaments and biological substances; Z91.012 Allergy to eggs; Z79.899 Other long term (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; Z79.84 Long term (current) use of oral hypoglycemic drugs
CPT/HCPCS: 96361; 96374; 96375; 99283-25; J1170; J1790; J7121

== ENCOUNTER 2022-04-24 09:25 | Observation (INO) | payer OTHER ==
[~2022-04-24] VITALS: Ht 182.9 cm; Wt 105.1 kg
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
--- NOTE | 2022-04-24 16:00 | NUR ---
Spoke with pts , Neetu. She states pt has not been doing well. He can walk at times at not at others. She is unable to lift him, her sister has been staying and helping her. They live in [place]. states she has spoke with Hospice in [place] and they plan to admit pt on Thursday. I will call and confirm this in the morning as they are closed now.
--- NOTE | 2022-04-24 16:10 | NUR ---
REPORT RECEIVED BEDSIDE FROM BODY SHOP FLOORPERSON AND PT. ARRIVED VIA STRETCHER. SKIN ASSESSMENT COMP. BY 2 RNS. PT. ON 3L NC. NEEDS ASSISTANCE WITH SCOOTING FROM STRETCHER TO BED. INTAKE ASSESSMENT COMPLETED. AT BEDSIDE. PORT ACCESSED. PT. C/O 11/13 ABDOMINAL AND BACK PAIN . ADMIN PRN MED. DISCUSSED SAFETY, POC. LEFT RESTING WITH CALL LIGHT IN REACH.
--- NOTE | 2022-04-24 17:39 | NUR ---
PT. CHART REVIEWED AND RECEIVED 5-FU ON PUMP 04/21-04/23. PLACED ON CYTOTOXIC PRECAUTIONS.
--- NOTE | 2022-04-24 19:32 | NUR ---
received report from offgoing shift, hourly rounding initiated
--- NOTE | 2022-04-24 19:59 | NUR ---
IN PT ROOM FOR MEDICATION ADMINISTRATION. PT COMPLAINING OF NAUSEA AND PAIN. PT GIVEN PRN PHENERGAN AND DILAUDID TO GOOD EFFECT. PT HAS NO FURTHER COMPLAINT, CALL LIGHT IN REACH, FAMILY AT BEDSIDE.
--- NOTE | 2022-04-24 20:16 | NUR ---
IN PT ROOM TO ADMINISTER REQUESTED NAUSEA AND PAIN MEDICATION. PT RESTING ON BACK, NO FURTHER COMPLAINT OF DISCOMFORT, CALL LIGHT IN REACH, FAMILY AT BEDSIDE.
--- NOTE | 2022-04-24 23:40 | NUR ---
IN PT ROOM FOR MEDICATION ADMINISTRATION. PT COMPLAINING OF PAIN. PT GIVEN PRN DILAUDID TO GOOD EFFECT, HAS NO FURTHER COMPLAINT, CALL LIGHT IN REACH.
--- NOTE | 2022-04-25 00:18 | NUR ---
cmp and bmp both ordered for this am (0600). gunjan in lab called and asked if the bmp could be cancelled as all information would be included in cmp-lab given okay to cancel bmp. primary rn nidia updated.
--- NOTE | 2022-04-25 01:13 | NUR ---
IN PT ROOM FOR ORUNDING. PT APPEARS TO BE SLEEPING, NO COMPLAINT OF PAIN, CALL LIGHT IN REACH, FAMILY AT BEDSIDE.
--- NOTE | 2022-04-25 02:07 | NUR ---
IN PT ROOM FOR ROUNDING. PT VS TAKEN, PT GIVEN PAIN MEDICATION PER REQUEST, NO FURTHER COMPLAINT, CALL LIGHT IN REACH, FAMILY AT BEDSIDE.
--- NOTE | 2022-04-25 04:14 | NUR ---
IN PT ROOM FOR ADMINSTRATION OF PAIN MEDICATION AT PT REQUEST. PT COMPLAINING OF 9/10 PAIN, NAUSEA. PT GIVEN PHENERGAN AND DILAUDID TO GOOD EFFECT, NO FURTHER COMPLAINT, FAMILY STILL AT BEDSIDE, CALL LIGHT IN REACH.
--- NOTE | 2022-04-25 05:40 | NUR ---
IN PT ROOM TO DRAW LAB FROM PORT. PT LABS DRAWN, TOLERATED WELL, NO COMPLAINT OF PAIN OR DISCOMFORT AT THIS TIME, CALL LIGHT IN REACH, FAMILY AT BEDSIDE.
--- NOTE | 2022-04-25 08:15 | NUR ---
CRITICAL PLATELET OF 27 CALLED IN BY MONI. FACE TO FACE NOTIFICATION TO DR ESCOBAR, NO NEW ORDERS AT THIS TIME.
--- NOTE | 2022-04-25 09:00 | NUR ---
REPORT RECEIVED FROM NIGHT RN AND PT. CARE RESUMED. PT. IS DROWSY BUT AWAKENS EASILY TO VOICE. ORIENTED TO ALL. DENIES PAIN OR NAUSEA. REFUSES BREAKFAST. PORT CATH. FLUSHES AND HAS BRISK BLOOD RETURN. AT BEDSIDE. LEFT RESTING WITH CALL LIHGT IN REACH.
[2022-04-25] MEDS ORDERED: MAG-OXIDE400 MG PO (09:32)
[2022-04-25] MEDS ORDERED: OMEPRAZOLE40 MG PO (09:33)
--- NOTE | 2022-04-25 10:31 | NUR ---
PT. C/O NAUSEA AND LOWER ABDOMINAL PAIN THAT IS JABBING. ADMIN PRN MEDS. AMBULATED TO TOILET AND HAD A BM. HR WAS 116 AFTER ABULATION. LEFT RESTING IN BED CALL LIGHT IN REACH AND AT BEDSIDE.
--- NOTE | 2022-04-25 10:55 | NUR ---
THIS MORNING WHILE PATIENT WAS SLEEPING AND AFTER DOING HIS BLOOD SUGAR CHECK. GOT HIS A CUP OF COFFEE. SO WHEN PATIENT WOKE UP PATIENT WANTED A CUP OF COFFEE.
[2022-04-25] MEDS ORDERED: STOOL SOFTENER1 EACH PO (11:32)
[2022-04-25] MEDS ORDERED: CALTRATE 600 P1 EACH PO (11:32)
[2022-04-25] MEDS ORDERED: SERTRALINE HCL50 MG PO (11:33)
[2022-04-25] MEDS ORDERED: FOLBIC TABLET1 EACH PO (11:33)
[2022-04-25] MEDS ORDERED: LIDOCAINE HCL100 ML MT (11:34)
--- NOTE | 2022-04-25 11:35 | NUR ---
MED REC COMPLETE
--- NOTE | 2022-04-25 11:45 | NUR ---
Notified by Dr. Alfaro this pt would now like to dc to home today. To room and discussed with pt and . states they do not need any pain or nausea medications. Pt is not wearing his 02 and sat was checked and pt is 94 % on RA. Called and spoke with hospice. They will admit this pt at 1000 on Thursday and deliver medications, DME, and oxygen for comfort. Pt remains a full code.
--- NOTE | 2022-04-25 12:16 | NUR ---
FAMILY VISITING, JUST LEAVING. PT RESTING IN BED, QUIET, KNOWS I AM PRESENT. ASHLEY PRESENT. SHE INFORMED ME PT IS TO GO HOME ON HOSPICE. THEY WILL COME ON THURSDAY. GAVE COMFORT TO ASHLEY AND HAD PRAYER BEFORE LEAVING
[2022-04-25] MEDS ORDERED: ONDANSETRON ODT8 MG PO (12:26)
--- NOTE | 2022-04-25 13:45 | NUR ---
ALL DISCHARGE INSTRUCTIONS REVIEWED WITH PT. AND QUESTIONS ANSWERED. PORT CATH DEACCESSED AFTER HEP. FLUSH. VITALS STABLE AND PT. DENIES PAIN. LEFT WITH ALL BELONGINGS VIA WHEELCHAIR WITH AND FIRE PROTECTION SPECIALIST
== END 2022-04-25 13:39 | disposition home or self-care (01) ==
LOC: ED 09:25 → MS 09:26
PROVIDERS: ADMIT Family Medicine; ATTEND Family Medicine
DX: J90 Pleural effusion, not elsewhere classified (principal); J96.01 Acute respiratory failure with hypoxia; J44.9 Chronic obstructive pulmonary disease, unspecified; C15.9 Malignant neoplasm of esophagus, unspecified; C78.7 Secondary malignant neoplasm of liver and intrahepatic bile duct; C79.89 Secondary malignant neoplasm of other specified sites; D69.6 Thrombocytopenia, unspecified; E11.9 Type 2 diabetes mellitus without complications; K21.9 Gastro-esophageal reflux disease without esophagitis; I10 Essential (primary) hypertension; Z20.822 Contact with and (suspected) exposure to COVID-19; R19.7 Diarrhea, unspecified; Z79.84 Long term (current) use of oral hypoglycemic drugs; Z79.899 Other long term (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; Z88.8 Allergy status to other drugs, medicaments and biological substances; Z91.012 Allergy to eggs
CPT/HCPCS: 36415; 71045; 76604; 80048; 80053; 80076; 83735; 83880; 84100; 85025; 85060; 85610; 87502; 94640; 94760; 94761; C9113; C9803; J1170; J1815; J2405; J2550; J7030; U0003